=== PATIENT | female | born 1945 | race Caucasian/White ===

== ENCOUNTER 2019-07-14 05:51 | Day surgery (SDC) | payer MEDICARE, SELFPAY ==
[2019-07-13 10:53] VITALS: BMI 34.7
--- NOTE | 2019-07-14 05:30 | P.HP_ITS ---
Providers/Chief Complaint Primary Care Provider: Teri Roca MD Chief Complaint: L97.522 History of Present Illness Caro Arcos is a 73 year old female with a chronic wound to the plantar aspect of her left foot sub-first metatarsal head. Patient has an past medical history significant for type 2 diabetes mellitus insulin-dependent, hypertension, hyperlipidemia, peripheral arterial disease, neuropathy and cataract. She has been under the care of [facility] wound care for her left foot wound which has stalled out, requesting a surgical debridement with application of biologic substitute and effort to promote further healing. Patient denies any other pedal complaints at this time. Review of Systems General: Reports: 10 or more systems reviewed and unremarkable except in HPI and below Const: Denies: fever or chills Card: Denies: chest pain, palpitations or syncope Resp: Denies: shortness of breath or productive cough GI: Denies: abdominal pain Musc: Reports: limited range of motion Skin/Breast: Reports: sores, nail changes and change in hair Neuro: Reports: numbness in extremities, changes in sensation and difficulty walking Psych: Denies: suicidal ideation Travon/Lymph: Denies: easy bruising All/Imm: Denies: hives Medications/Allergies Home Medications Medication Instructions Recorded Confirmed Last Taken Type carvedilol 12.5 mg PO DAILY 07/13/19 07/13/19 07/13/19 History citalopram 20 mg PO DAILY 07/13/19 07/13/19 07/13/19 History hydrocodone-acetaminophen 7.5 tab PO DAILY 07/13/19 07/13/19 07/13/19 History levothyroxine 75 mcg PO DAILY 07/13/19 07/13/19 07/13/19 History potassium chloride 10 meq PO DAILY 07/13/19 07/13/19 07/13/19 History simvastatin 40 mg PO DAILY 07/13/19 07/13/19 07/13/19 History warfarin 3 mg PO DAILY 07/13/19 07/13/19 07/08/19 History Allergies Allergy/AdvReac Type Severity Reaction Status Date / Time No Known Allergies Allergy Verified 07/10/19 11:43 PFSH PFSH: Statuses (acute, chronic, etc) shown below reflect problem list status as previously entered and may not be historically accurate Social History Smoking and tobacco status: never smoked Alcohol intake: never Substance/Drug Use: never Vital Signs Weight: Weight last 48 hrs Weight 190 lb Weight 190 lb Physical Exam Narrative: EXAM NARRATIVE: Patient is in no acute distress, conversant. PSYCH: Patient is alert and oriented to person, place and time. HEENT: PERRL. Clear sclera. No rhinitis. Moist mucous membranes of oral cavity. CARDIOVASCULAR: S1, S2, normal rhythm, no murmur, rub, or gallop. Dorsalis pedis and posterior tibial arteries palpable. Capillary refill time less than 3 seconds to the distal hallux bilaterally. Calf is supple and nontender proximally and distally. Decreased pedal hair growth noted. LUNGS: Clear to auscltation, no use of acessory muscles, no crackles or wheezes. LYMPHATIC: No lymphadenopathy. NEUROLOGICAL: Protective sensation intact 3/10 sites, tested with [place] monofilament to bilateral feet. DERMATOLOGICAL: Full-thickness wound sub-first metatarsal head left foot measures 1.8 cm x 2.0 cm x 0.3 cm which undermines at the margin, hyperkeratotic rim, granular base with serous drainage no surrounding erythema, no purulent drainage, does not probe to bone, no exposure to tendon or capsule. Hyperkeratotic buildup sub-first metatarsal head right foot without wound. MUSCULOSKELETAL: Ankle joint dorsiflexion 2 degrees beyond neutral bilaterally. Very prominent metatarsal parabola bilaterally, atrophic fat pad appreciated at the bilateral forefoot. Contracted digits with sagittal plane dominance these are reducible 2 through 5 bilaterally. Muscle strength is 5 out of 5 in all 3 cardinal planes to bilateral foot and ankle. 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 since midnight, stopped taking her Coumadin on Wednesday. Planning on MAC anesthesia outpatient surgery for wound debridement and application of biological substitute to left foot. Risks include pain, bleeding, numbness, infection, poorly healing wound, need for further surgical intervention. Also risk associated with anesthesia. Patient has underwent serial debridement, offloading and advanced dressing changes along with antib iotics as needed at wound care with nonresponsive wound. Patient has been agreed to be very limited weightbearing to her left foot postoperatively much of her success will hinge on this, she is to wear a cam boot and heel touch only for transfers. Patient to follow-up in podiatry clinic postoperatively. Coding Level of Care Code Acute Auto Adjudication Specialist for Cristian Marroquin Diagnoses Diabetic peripheral neuropathy associated with type 2 diabetes mellitus E11.42 Chronic ulcer of great toe of left foot with fat layer exposed L97.522
[2019-07-14 06:22] VITALS: BP 117/48; PULSE 61; RESP 18; TEMP 37; O2SAT 99
[2019-07-14 06:36] LABS: Glucose Point of Care 154 mg/dL (70-110)
--- NOTE | 2019-07-14 06:40 | ANES.PREANES ---
Pre-Anesthetic Assessment Pre-Anesthetic Assessment: Height/Weight: Height 1.57 m Weight 86.183 kg Temp Pulse Resp BP Pulse Ox 98.6 F 61 18 117/48 99 07/14/19 06:22 07/14/19 06:22 07/14/19 06:22 07/14/19 06:22 07/14/19 06:22 Preop Diagnosis: Chronic nonpressure ulceration left plantar forefoot L97.522 Proposed Procedure: Operation Date: 07/14/19 07:00 Proposed Procedures p Debridement Wound bed preparation and application of biologic graft, left foot () L97.522(Not Applicable) - Roni Lynn DPM Last intake: Intake Last Liquid Date 07/13/19 Last Liquid Time 20:00 Last Solid Date 07/13/19 Last Solid Time 19:00 Social: Social History: No alcohol and No tobacco Exam: Pre-Anes Outpt Exam: alert, oriented x 3, clear to auscultation bilaterally and regular rate & rhythm Airway: Submandibular: WNL Cervical ROM: WNL MP: 2 Dentition: Full History/ROS: No significant history except as noted Pulmonary: Pulmonary: TROTTER CV/HEM: CV/HEM: Afib and HTN : : None reported Hepatic: Hepatic: None reported GI: GI: GERD (controlled) Metabolic: Metabolic: DM, Hyperlipidemia and Thyroid Musc/skel: Musc/skel: Lower Back Pain and OA/DJD Neuropsych: Neuropsych: Neuropathy (feet) Anesthetic Plan: ASA status: III Anesthesia: Anesthesia Evaluation and MAC Risk of > 500 ml blood loss (7ml/kg in children): No PFSH Anesthesia PFSH: Medical History Atrial fibrillation and flutter (Acute) Diabetes type I (Acute) Severe hearing loss (Acute) left side Vertigo (Acute) Surgical History Hx of foot surgery (Acute) left x 4 Hx of tubal ligation (Acute) Hx of vaginal surgery (Acute) removal of vagina Social History Smoking and tobacco status: never smoked Alcohol intake: never Data Anesthesia Other Labs: Laboratory Results - last 48 hr 07/14/19 06:32 POC Glucose 154 Cardiac Studies: No Data to Display
--- NOTE | 2019-07-14 07:27 | P.OP_ITS ---
Operative Report Date of procedure: 07/14/19 Pre-op Diagnosis: Chronic nonpressure ulceration left plantar forefoot L97.522 Post-op diagnosis: same Post-op Findings: None Procedure Done: 1. Wound bed preparation left foot 2. Application of biologic substitute left foot Implants: Integra Omnigraft 4x4 Specimens removed/disposition: None Pathology: none sent Surgeon: Roni Lynn D.P.M. Education Administrative Assistant: Arslan Anesthesia: MAC and Local (20 cc of 0.5% Marcaine plain and a left Mckeon block fashion) Estimated blood loss: 2 mL IV fluids: None Urine output: None Complications: None Condition: stable Disposition: PACU Brief History: Patient is a 73-year-old diabetic female with nonhealing wound left plantar forefoot has underwent serial debridement, offloading modalities and advanced wound care dressings without improvement. Would like to undergo surgical debridement with application of collagen and silicone bilayer graft risks include pain, bleeding, numbness, infection, need for further surgical debridement and amputation. Procedure: Under mild sedation the patient was brought to the operating room and placed on the operating table in supine position. Timeout was performed. Anesthesia was then administered by the anesthesia service. Local anesthesia was injected by myself consisting of 20 cc of 0.5% Marcaine plain and a left Mckeon block fashion. Left lower extremity was scrubbed, prepped and draped utilizing normal aseptic technique. Left foot was then elevated and a tourniquet was inflated at left ankle this was a well-padded pneumatic tourniquet to 250 mmHg. Attention was directed to the plantar aspect of the left forefoot sub-first metatarsal head a full-thickness wound exposed to fat layer was appreciated pre- debridement measurements were 2.2 cm x 2.0 cm x 0.2 cm. The wound was excised circumferentially down to healthy tissue with a #15 blade, nonviable tissue was passed from the operative field. #10 blade was then utilized to prepare the bed of the wound to remove all fibrin, slough, biofilm and devitalized tissue down to the layer of subcutaneous tissue. Healthy bleeding edges were appreciated post debridement. Site was irrigated with copious amounts of sterile saline solution. No remaining devitalized tissue appreciated wound not probed tendon, fascia or bone. Post debridement wound measurements 2.8 cm x 2.5 cm x 0.2 cm. A Integra bilayer graft was then applied this was consisting of chondroitin collagen and silicone it was sized and fitted directly to the wound bed and secured with skin willem. Dressing was then applied consisting of Adaptic, sterile 4 x 4's, Kerlix and Nas wrap. Tourniquet was deflated and a prompt hyperemic response was noted to the distal digits of the left foot. Patient tolerated the procedure and anesthesia well and was transferred to the PACU with vital signs stable and vascular status intact. Following a period of postoperative monitoring she will be discharged home is to be nonweightbearing to the left foot. She was placed back into her cam boot that she brought with her. She is to follow-up in clinic appointed time and was provided my cell phone numbers to contact me with any postoperative questions or concerns.
[2019-07-14 07:33] VITALS: BP 115/51; PULSE 61; RESP 16; TEMP 37; O2SAT 99
== END 2019-07-14 08:11 | disposition home or self-care (01) ==
PROVIDERS: Family Provider Internal Medicine; PCP Internal Medicine; Visit Provider Podiatrist Foot & Ankle Surgery
PROC: (CPT 15004; principal; 2019-07-14 07:00)
DX: L97.522 Non-pressure chronic ulcer of other part of left foot with fat layer exposed (principal); Z79.891 Long term (current) use of opiate analgesic; Z79.01 Long term (current) use of anticoagulants; E11.42 Type 2 diabetes mellitus with diabetic polyneuropathy; I48.91 Unspecified atrial fibrillation; K21.9 Gastro-esophageal reflux disease without esophagitis; E78.5 Hyperlipidemia, unspecified; M19.90 Unspecified osteoarthritis, unspecified site
CPT/HCPCS: 15004; 15275; 12345; 36416; 82962; C1713; J0690; J2001; J2704; J3010; J3490

== ENCOUNTER 2019-07-17 10:17 | Outpatient (RCR) | payer MEDICARE, SELFPAY | END 2019-07-21 23:59 | disposition home or self-care (01) | LOC: WOUND 10:17 | PROVIDERS: Family Provider Internal Medicine; PCP Internal Medicine; Visit Provider Nurse Practitioner Family | DX: E11.621 Type 2 diabetes mellitus with foot ulcer (principal); L97.522 Non-pressure chronic ulcer of other part of left foot with fat layer exposed | CPT/HCPCS: 11042; 99214; L3260; L4387 ==

== ENCOUNTER 2019-08-17 09:59 | Outpatient (RCR) | payer MEDICARE, SELFPAY | END 2019-08-19 23:59 | disposition home or self-care (01) | LOC: WOUND 09:59 | PROVIDERS: Family Provider Internal Medicine; PCP Internal Medicine; Visit Provider Nurse Practitioner Family | DX: E11.621 Type 2 diabetes mellitus with foot ulcer (principal); L97.422 Non-pressure chronic ulcer of left heel and midfoot with fat layer exposed | CPT/HCPCS: 99204; 99212 ==

== ENCOUNTER 2019-09-14 10:37 | Outpatient (RCR) | payer MEDICARE, SELFPAY | END 2019-09-19 23:59 | disposition home or self-care (01) | LOC: WOUND 10:37 | PROVIDERS: Family Provider Internal Medicine; PCP Internal Medicine; Visit Provider Nurse Practitioner Family | DX: E11.621 Type 2 diabetes mellitus with foot ulcer (principal); L97.422 Non-pressure chronic ulcer of left heel and midfoot with fat layer exposed | CPT/HCPCS: 11042; 99214; G0463; L3260 ==

== ENCOUNTER 2019-09-21 10:42 | Outpatient (RCR) | payer MEDICARE, SELFPAY | END 2019-10-19 23:59 | disposition home or self-care (01) | LOC: WOUND 10:42 | PROVIDERS: Family Provider Internal Medicine; PCP Internal Medicine; Visit Provider Nurse Practitioner Family | DX: Z09 Encounter for follow-up examination after completed treatment for conditions other than malignant neoplasm (principal) | CPT/HCPCS: 99213; G0463 ==

== ENCOUNTER 2020-01-04 08:36 | Outpatient (CLI) | payer MEDICARE, SELFPAY | END 2020-01-04 08:37 | disposition home or self-care (01) | LOC: WOUND 08:39 | PROVIDERS: Family Provider Internal Medicine; PCP Internal Medicine; Visit Provider Emergency Medicine | DX: E11.621 Type 2 diabetes mellitus with foot ulcer (principal); L97.522 Non-pressure chronic ulcer of other part of left foot with fat layer exposed | CPT/HCPCS: 11042; 87070; 87077; 87176; 87186; 87205; L3260 ==

== ENCOUNTER 2020-01-10 13:46 | Outpatient (CLI) | payer MEDICARE, SELFPAY ==
--- NOTE | 2020-01-10 14:03 | XRR_ITS ---
PROCEDURE INFORMATION: Exam: XR Left Foot Complete Exam date and time: 01/10/2020 2:17 PM Age: 74 years old Clinical indication: Pain; Foot; Left; Prior surgery; Surgery date: 6+ months; Additional info: Pain, redness, nonhealing ulcer TECHNIQUE: Imaging protocol: XR Left foot. Views: 3 or more views. COMPARISON: CR Foot 3 views, LEFT* [id number] 11/30/2018 10:37 AM FINDINGS: Bones/joints: There is amputation of the distal 1/2 of the 2nd and 3rd metatarsals. This finding was present on prior examination and appears similar. Soft tissues: Dorsal foot soft tissue edema is seen increased since prior examination. Other findings: The examination does not show acute abnormality. Comparison to prior examination similar findings is seen. XR/XR foot LT min 3V* [id number] IMPRESSION: 1. Amputation of the 2nd and 3rd metatarsal. 2. Negative for acute bony abnormality. 3. Soft tissue edema dorsal foot increased since prior
== END 2020-01-10 13:47 | disposition home or self-care (01) ==
LOC: RAD 13:56
PROVIDERS: PCP Internal Medicine; Visit Provider Emergency Medicine
DX: M79.672 Pain in left foot (principal); L97.529 Non-pressure chronic ulcer of other part of left foot with unspecified severity; Z89.422 Acquired absence of other left toe(s); R60.9 Edema, unspecified
CPT/HCPCS: 73630

== ENCOUNTER 2020-01-11 09:39 | Outpatient (CLI) | payer MEDICARE, SELFPAY | END 2020-01-11 09:40 | disposition home or self-care (01) | LOC: WOUND 09:40 | PROVIDERS: PCP Internal Medicine; Visit Provider Nurse Practitioner Family | DX: E11.621 Type 2 diabetes mellitus with foot ulcer (principal); L97.522 Non-pressure chronic ulcer of other part of left foot with fat layer exposed ==

== ENCOUNTER 2020-01-18 09:16 | Outpatient (CLI) | payer MEDICARE, SELFPAY | END 2020-01-18 09:17 | disposition home or self-care (01) | LOC: WOUND 09:18 | PROVIDERS: PCP Internal Medicine; Visit Provider Nurse Practitioner Family | DX: E11.621 Type 2 diabetes mellitus with foot ulcer (principal); L97.522 Non-pressure chronic ulcer of other part of left foot with fat layer exposed | CPT/HCPCS: 11042 ==

== ENCOUNTER 2020-01-25 09:09 | Outpatient (CLI) | payer MEDICARE, SELFPAY | END 2020-01-25 09:10 | disposition home or self-care (01) | LOC: WOUND 09:11 | PROVIDERS: PCP Internal Medicine; Visit Provider Thoracic Surgery (Cardiothoracic Vascular Surgery) | DX: E11.621 Type 2 diabetes mellitus with foot ulcer (principal); L97.522 Non-pressure chronic ulcer of other part of left foot with fat layer exposed | CPT/HCPCS: 99212 ==

== ENCOUNTER 2020-02-01 10:04 | Outpatient (CLI) | payer MEDICARE, SELFPAY | END 2020-02-01 10:05 | disposition home or self-care (01) | LOC: WOUND 10:05 | PROVIDERS: PCP Internal Medicine; Visit Provider Nurse Practitioner Family | DX: E11.621 Type 2 diabetes mellitus with foot ulcer (principal); L97.522 Non-pressure chronic ulcer of other part of left foot with fat layer exposed | CPT/HCPCS: 11042; L3260 ==

== ENCOUNTER 2020-02-08 08:52 | Outpatient (CLI) | payer MEDICARE, SELFPAY | END 2020-02-08 08:53 | disposition home or self-care (01) | LOC: WOUND 08:52 | PROVIDERS: PCP Internal Medicine; Visit Provider Emergency Medicine | DX: E11.621 Type 2 diabetes mellitus with foot ulcer (principal); L97.522 Non-pressure chronic ulcer of other part of left foot with fat layer exposed | CPT/HCPCS: 11042 ==

== ENCOUNTER 2020-02-22 09:20 | Outpatient (CLI) | payer MEDICARE, SELFPAY | END 2020-02-22 09:21 | disposition home or self-care (01) | LOC: WOUND 09:21 | PROVIDERS: PCP Internal Medicine; Visit Provider Emergency Medicine | DX: E11.621 Type 2 diabetes mellitus with foot ulcer (principal); L97.522 Non-pressure chronic ulcer of other part of left foot with fat layer exposed | CPT/HCPCS: 11042 ==

== ENCOUNTER 2020-03-07 09:40 | Outpatient (CLI) | payer MEDICARE, SELFPAY | END 2020-03-07 09:41 | disposition home or self-care (01) | LOC: WOUND 09:49 | PROVIDERS: PCP Internal Medicine; Visit Provider Emergency Medicine | DX: E11.621 Type 2 diabetes mellitus with foot ulcer (principal); L97.522 Non-pressure chronic ulcer of other part of left foot with fat layer exposed | CPT/HCPCS: 11042; L3260 ==

== ENCOUNTER 2020-03-14 09:43 | Outpatient (CLI) | payer MEDICARE, SELFPAY | END 2020-03-14 09:44 | disposition home or self-care (01) | LOC: WOUND 09:45 | PROVIDERS: PCP Internal Medicine; Visit Provider Nurse Practitioner Family | DX: E11.621 Type 2 diabetes mellitus with foot ulcer (principal); L97.522 Non-pressure chronic ulcer of other part of left foot with fat layer exposed | CPT/HCPCS: 11042; A6446 ==

== ENCOUNTER 2020-03-21 10:56 | Outpatient (CLI) | payer MEDICARE, SELFPAY | END 2020-03-21 10:57 | disposition home or self-care (01) | LOC: WOUND 10:57 | PROVIDERS: PCP Internal Medicine; Visit Provider Nurse Practitioner Family | DX: E11.621 Type 2 diabetes mellitus with foot ulcer (principal); L97.522 Non-pressure chronic ulcer of other part of left foot with fat layer exposed | CPT/HCPCS: 11042 ==

== ENCOUNTER 2020-03-28 09:56 | Outpatient (CLI) | payer MEDICARE, SELFPAY | END 2020-03-28 09:57 | disposition home or self-care (01) | LOC: WOUND 09:57 | PROVIDERS: PCP Internal Medicine; Visit Provider Surgery | DX: E11.621 Type 2 diabetes mellitus with foot ulcer (principal); L97.522 Non-pressure chronic ulcer of other part of left foot with fat layer exposed | CPT/HCPCS: G0463 ==

== ENCOUNTER 2020-04-04 10:15 | Emergency (ER) | payer MEDICARE, SELFPAY ==
--- NOTE | 2020-04-04 10:17 | XR_ITS ---
WS: [id number] Left ankle, 3 views, 04/04/2020 Clinical Data: fall Comparison: None. Findings: No fractures or dislocations are seen. The ankle mortise is normal. The talus and calcaneus are unrem arkable. There is soft tissue swelling over the medial and lateral malleolus.There is a plantar spur. XR/XR ankle LT min 3V* [id number] Impression: 1. Negative for left ankle fracture. 2. Soft tissue swelling over medial and lateral malleoli
[2020-04-04 10:21] VITALS: BP 121/75; PULSE 55; RESP 16; TEMP 36.8; O2SAT 98; BMI 33.8
--- NOTE | 2020-04-04 10:35 | ED_ITS ---
HPI - Extremity Problem General: Chief complaint: Extremity Injury, Lower Stated complaint: Fall/Left Ankle Pain Time Seen by Provider: 04/04/20 10:28 History of Present Illness: HPI Narrative: Patient twisted left ankle get off stool day before yesterday at the store it hurt since then has been swelled since then. Patient also has a wound on that left foot that she has been seen at wound care for 2 years for and she just changed dressing last night and says wound looks fine has pain with ambulation in that joint MD Complaint: joint swelling and joint pain Onset (ago): day(s) Location: lower extremity Severity scale (1-10): 4 Quality: aching Relieving factors: immobilization Exacerbating factors: range of motion and weight bearing Associated symptoms: Reports no associated symptoms; Deny chest pain, fever(s) or rash Review of Systems Const: Denies: fever(s), chills or body aches Eyes: Denies: change in vision or blurry vision ENMT: Denies: throat pain or nasal congestion Card: Denies: chest pain or dyspnea on exertion Resp: Denies: dyspnea, productive cough or non-productive cough GI: Denies: abdominal pain, nausea or vomiting Musc: Reports: joint pain (Left ankle) and joint swelling; Denies: extremity pain Skin/Breast: Denies: rash Neuro: Denies: headache(s) Psych: Denies: anxiety or depression Travon/Lymph: Denies: easy bruising [facility] ED PFSH: Medical History (Updated 11/24/19 @ 13:36 by Roin Lynn DPM) Atrial fibrillation and flutter Diabetes type I Severe hearing loss left side Vertigo Surgical History Hx of foot surgery left x 4 Hx of tubal ligation Hx of vaginal surgery removal of vagina Family History Denies family history of Diabetes CAD (coronary artery disease) Clotting disorder Dementia Hyperlipidemia Psychiatric illness Chronic kidney disease (CKD) Suicide Anesthesia complication Bleeding disorder Family history of premature coronary artery disease Lung disease Cancer Hypertension Stroke Social History Smoking and tobacco status: never smoked Alcohol intake: never Physical Exam Const: COMMON NORMALS: no acute distress Extremity: LEFT LOWER EXTREMITY: Yes ankle joint (Left ankle pain swelling pain with range of motion ankle is wrapped dressing is dry distal neurovascular intact) Left ankle: Yes ROM and Yes neurovascular exam Course Vital Signs: Vital signs: Vital Signs Temperature 98.2 F 04/04/20 10:21 Pulse Rate 55 L 04/04/20 10:21 Respiratory Rate 16 04/04/20 10:21 Blood Pressure 121/75 04/04/20 10:21 Pulse Oximetry 98 04/04/20 10:21 Discharge Plan Discharge Prescriptions: No Action carvedilol 12.5 mg tablet 12.5 mg PO DAILY RF: 0 simvastatin 40 mg tablet 40 mg PO DAILY RF: 0 warfarin 3 mg tablet 3 mg PO DAILY RF: 0 levothyroxine 75 mcg tablet 75 mcg PO DAILY RF: 0 citalopram 20 mg tablet 20 mg PO DAILY RF: 0 hydrocodone-acetaminophen 7.5-325 mg tablet 7.5 tab PO DAILY RF: 0 potassium chloride 10 mEq tablet,ER particles/crystals 10 meq PO DAILY RF: 0 Coding Level of Care Code ED Activities Aide for Cristian Marroquin
[2020-04-04 10:43] VITALS: BP 119/63; RESP 16; O2SAT 99
== END 2020-04-04 10:51 | disposition home or self-care (01) ==
PROVIDERS: Emergency Provider Nurse Practitioner Family; PCP Internal Medicine
DX: M25.572 Pain in left ankle and joints of left foot (principal); Z79.01 Long term (current) use of anticoagulants; E10.9 Type 1 diabetes mellitus without complications; I48.91 Unspecified atrial fibrillation
CPT/HCPCS: 12345; 73610; 99281; 99282

== ENCOUNTER 2020-04-11 09:50 | Outpatient (CLI) | payer MEDICARE, SELFPAY | END 2020-04-11 09:51 | disposition home or self-care (01) | LOC: WOUND 09:51 | PROVIDERS: PCP Internal Medicine; Visit Provider Nurse Practitioner Family | DX: E11.621 Type 2 diabetes mellitus with foot ulcer (principal); L97.523 Non-pressure chronic ulcer of other part of left foot with necrosis of muscle | CPT/HCPCS: G0463; L3260 ==

== ENCOUNTER 2020-04-12 07:35 | Outpatient (CLI) | payer MEDICARE, SELFPAY ==
--- NOTE | 2020-04-12 07:47 | NM_ITS ---
WS: [id number] NUCLEAR MEDICINE BONE SCAN 3 phase Radiopharmaceutical: 24.1 Tc-99m MDP mCi IV Injection site: Right antecubital Postinjection imaging delay: 2 hr CLINICAL INFORMATION: PAIN/REDNESS/NONHEALING ULCER COMPARISON: Radiograph 04/11/20 and 01/10/2020 FINDINGS: Recent foot radiographs reviewed. Osteopenia. Soft tissue edema. Prior amputation second an d third metatarsals. This appears unchanged from previous. Osseous destruction involving the first MT P joint with subluxation. Destructive changes at the first metatarsal head involving the medial and l ateral cortex worse involving the lateral cortex. This is progressed since January 10, 2020 Increased blood flow blood pool and delayed skeletal uptake involving the first metatarsal. This yoana esponds to the findings on the concurrent radiograph. Findings are compatible with osteomyelitis in t his location. Soft tissue contours: Normal. Kidneys: Normal. Other findings: None. NM/NM bone 3 phase [id number] IMPRESSION: 1. Three-phase matching uptake involving the first metatarsal head compatible with osteomyelitis. This extends to the mid shaft of the first metatarsal. This extends distally to the first MTP 2. Osseous destructive changes involving the head of the first metatarsal on tono rodriguez's radiograph is new since 01/10/20 compatible with osteomyelitis.
--- NOTE | 2020-04-12 10:54 | XR_ITS ---
WS: [id number] FOOT LEFT TECHNIQUE: 3 views of the left foot CLINICAL INFORMATION: BONE SCAN COMPARISON COMPARISON: April 04, 2020 and January 10, 2020 FINDINGS: Diffuse osteopenia. Prior postoperative changes amputation of the second third metatarsals unchanged in appearance. New osteolysis with destructive changes involving the head of the first metatarsal. Ir regularity involving the medial and lateral cortices consistent with osteomyelitis. Chronic subluxati on/dislocation at the first MTP similar in appearance to the prior examination. Soft tissue edema. Pl ceci calcaneal spurring. XR/XR foot LT min 3V* [id number] IMPRESSION: New findings of osteomyelitis involving the first metatarsal head described abo melissa.
== END 2020-04-12 07:36 | disposition home or self-care (01) ==
PROVIDERS: PCP Internal Medicine; Visit Provider Nurse Practitioner Family
DX: M79.672 Pain in left foot (principal); L53.9 Erythematous condition, unspecified; L97.529 Non-pressure chronic ulcer of other part of left foot with unspecified severity; M86.8X7 Other osteomyelitis, ankle and foot
CPT/HCPCS: 73630; 78315; A9561

== ENCOUNTER 2020-04-25 10:44 | Outpatient (CLI) | payer MEDICARE, SELFPAY | END 2020-04-25 10:45 | disposition home or self-care (01) | LOC: WOUND 10:45 | PROVIDERS: PCP Internal Medicine; Visit Provider Nurse Practitioner Family | DX: E11.621 Type 2 diabetes mellitus with foot ulcer (principal); L97.522 Non-pressure chronic ulcer of other part of left foot with fat layer exposed | CPT/HCPCS: 11042; G0463 ==

== ENCOUNTER 2020-05-02 10:01 | Outpatient (CLI) | payer MEDICARE, SELFPAY | END 2020-05-02 10:02 | disposition home or self-care (01) | LOC: WOUND 10:04 | PROVIDERS: PCP Internal Medicine; Visit Provider Nurse Practitioner Family | DX: E11.621 Type 2 diabetes mellitus with foot ulcer (principal); L97.524 Non-pressure chronic ulcer of other part of left foot with necrosis of bone | CPT/HCPCS: 11042; L4387 ==

== ENCOUNTER → 2020-05-06 13:03 | Outpatient (BNVA) | payer MEDICARE, SELFPAY | PROVIDERS: PCP Internal Medicine; Visit Provider Podiatrist Foot & Ankle Surgery | DX: Z11.59 Encounter for screening for other viral diseases (principal); M47.816 Spondylosis without myelopathy or radiculopathy, lumbar region | CPT/HCPCS: 87635 ==

== ENCOUNTER 2020-05-10 09:01 | Day surgery (SDC) | payer MEDICARE, SELFPAY ==
[2020-05-09 13:12] VITALS: BMI 32.0
[2020-05-10 09:15] VITALS: BP 125/65; PULSE 66; RESP 18; TEMP 36.6; O2SAT 96
[2020-05-10] MEDS: sodium chloride 0.9% 1,000 ML 30 ML IV (10:02)
--- NOTE | 2020-05-10 10:16 | ANES.PREANE2 ---
Pre-Anesthetic Assessment Pre-Anesthetic Assessment: Height/Weight: Height 1.57 m Weight 79.379 kg Temp Pulse Resp BP Pulse Ox 97.9 F 66 18 125/65 96 05/10/20 09:15 05/10/20 09:15 05/10/20 09:15 05/10/20 09:15 05/10/20 09:15 Preop Diagnosis: Left ankle equinus, left foot osteomyelitis Proposed Procedure: Operation Date: 05/10/20 10:20 Proposed Procedures p Transmetatarsal Amputation Left foot 08121 23549 M86.9 M24.572(Left) - Roni Lynn DPM s Achilles Tendon Lengthening left lower extremity(Left) - Roni Lynn DPM Familial anesthetic complications: None Was Beta Blake taken within 24 hours: Yes Last intake: Intake Last Liquid Date 05/10/20 Last Liquid Time 07:00 Last Solid Date 05/09/20 Last Solid Time 20:00 Social: Social History: No alcohol and No tobacco Exam: Pre-Anes Outpt Exam: alert, oriented x 3, clear to auscultation bilaterally and regular rate & rhythm Airway: Cervical ROM: WNL MP: 3 Dentition: False CV/HEM: CV/HEM: Afib (off warfarin since wednesday) and HTN Comments: 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 If seizure will attempt propofol, before versed and avoid phenytoin. Risk of > 500 ml blood loss (7ml/kg in children): No Meds/Allergies Current Medications: Current Medications Generic Name Dose Route Start Last Admin Trade Name Freq PRN Reason Stop Dose Admin Sodium Chloride 1,000 mls @ 30 ml s/hr 05/10/20 09:15 05/10/20 10:02 Sodium Chloride 0.9% IV 05/11/20 09:14 30 mls/hr .Q24H JENNY Administration PFSH Anesthesia PFSH: Medical History (Updated 05/06/20 @ 08:47 by Roni Lynn DPM) Atrial fibrillation and flutter Diabetes type I Severe hearing loss left side Vertigo Surgical History Hx of foot surgery left x 4 Hx of tubal ligation Hx of vaginal surgery removal of vagina Family History Denies family history of Diabetes CAD (coronary artery disease) Clotting disorder Dementia Hyperlipidemia Psychiatric illness Chronic kidney disease (CKD) Suicide Anesthesia complication Bleeding disorder Family history of premature coronary artery disease Lung disease Cancer Hypertension Stroke Social History Smoking and tobacco status: never smoked Alcohol intake: never Data Anesthesia Cardiac Studies: No Data to Display
--- NOTE | 2020-05-10 10:29 | P.HPUD_ITS ---
Surgery/Procedure H&P Update DATE OF PROCEDURE: May 10, 2020 DATE H&P PERFORMED: 05/02/20 H&P UPDATE INFORMATION: I have reviewed H&P completed within last 30 days, I have examined patient prior to procedure, No changes to prior documentation and H&P is in [facility] EMR on date indicated PREOP DIAGNOSIS: Left ankle equinus, left foot osteomyelitis PLANNED PROCEDURE: Operation Date: 05/10/20 10:20 Proposed Procedures p Transmetatarsal Amputation Left foot 35130 17335 M86.9 M24.572(Left) - Roni Lynn DPM s Achilles Tendon Lengthening left lower extremity(Left) - Roni Lynn DPM
[2020-05-10] MEDS: lidocaine 1% INJ 20 mL INJECTION (10:54)
[2020-05-10 11:44] LABS: Glucose Point of Care 176 mg/dL (70-110)
--- NOTE | 2020-05-10 11:53 | XR_ITS ---
WS: [id number] Exam: XR foot LT 2V [id number] Date/Time of Exam: 05/10/2020 11:53 AM Reason For Exam: post op Comparison 04/12/2020. There has been amputation of the forefoot at the level of the proximal metatarsals. No fracture or os seous destruction involving the remaining aspects of the foot. The amputation stump is unremarkable i n appearance. Small heel spurs. XR/XR foot LT 2V [id number] IMPRESSION: 1. Status post forefoot amputation at the level of the proximal metatarsals. Th e remaining osseous structures of the foot are unremarkable in appearance.
[2020-05-10 11:56] VITALS: BP 103/58; PULSE 64; RESP 16; TEMP 36.4; O2SAT 94
[2020-05-10 12:52] VITALS: BP 117/64; PULSE 60; RESP 18; TEMP 36.5; O2SAT 94
--- NOTE | 2020-05-10 18:36 | ANE.PACU2 ---
Inpatient post-anesthesia follow up: Airway intact: Yes Vital signs: Temperature 97.7 F Pulse Rate 60 Respiratory Rate 18 Blood Pressure 117/64 Pulse Oximetry 94 Oxygen Delivery Me thod Room Air Oxygen Flow Rate Fraction of Inspir ed Oxygen Hydration adequate: Yes Nausea and vomiting: No Pain level: 1 Mental status: Baseline
--- NOTE | 2020-05-10 18:47 | PM.OP ---
Operative Report Date of procedure: May 10, 2020 Pre-op Diagnosis: Left ankle equinus, left foot osteomyelitis Post-op diagnosis: same Procedure Done: Transmetatarsal Amputation Left foot, Achilles Tendon Lengthening left lower extremity. CPT codes 50798 and 10873 Implants: 3-0 nylon Specimens removed/disposition: Left first metatarsal head sent to microbiology for Gram stain and culture Pathology: Left forefoot sent to pathology for permanent Surgeon: Roni Lynn D.P.M. Pass Worker: Katie Anesthesia: MAC Estimated blood loss: 25 mL Tourniquet time: See intraoperative documentation IV fluids: None Urine output: None Complications: None Findings: Devitalized soft tissue and bone first metatarsal left foot. Condition: stable Disposition: PACU Brief History: Patient is a pleasant 74-year-old diabetic female with history of chronic osteomyelitis and wound care therapies at [facility] [place] wound care greater than 1 year, osteomyelitis of the first metatarsal with worsening clinical appearance including increased redness and drainage. Patient has history of partial ray resection of the second and third ray of the left foot. Recommending transmetatarsal amputation with primary closure and tendo Achilles lengthening of the left lower extremity this can be performed outpatient at this time. Patient is agreeable wishes to proceed risks include pain, bleeding, numbness, infection, failure to eradicate infection need for higher levels of amputation and potential need for antibiotic therapies, surgical site dehiscence, decreased function, need for advanced bracing and shoe modifications. Patient is agreeable wishes to proceed. Patient seen in preop holding, informed consent signed identified left lower extremity marked extremity with skin marker. All questions answered to patient's and her son satisfaction. No guarantees written, expressed or implied. Procedure: Under mild sedation the patient was brought to the operating room and placed on the operating table in supine position. A timeout was performed. Anesthesia was then administered by the anesthesia service. Local anesthesia injected by myself consisting of 30 cc of 0.5 to Marcaine plain and a left ankle block fashion as well as left posterior field block proximal to Achilles tendon. Well-padded pneumatic tourniquet applied to the left high calf. Left lower extremity was then scrubbed, prepped and draped utilizing normal aseptic technique. Left foot was elevated and the tourniquet inflated to 250 mmHg. Attention was directed to the left posterior leg where Achilles tendon was palpated 3 cm proximal to insertion of the posterior calcaneus a hemisection was performed percutaneously with a #15 blade of the medial Achilles, 3 cm proximal to this a lateral hemisection was performed followed by a third stab incision and medial hemisection of the Achilles tendon. Total of 3 hemisections to medial 1 lateral performed percutaneously and the left ankle joint demonstrated improved dorsiflexion this was at nearly 10 degrees of dorsiflexion post Achilles lengthening. Incisions were flushed and closed with 4-0 nylon and covered with a OpSite. Attention was directed to the left foot where a fishmouth incision was carried out from medial to lateral across the distal forefoot maintaining as much healthy and viable skin as possible. Full-thickness incision was carried out with a #10 blade down to bone and dissection carried down to metatarsals 1 through 5 which identified and freed of their periosteal tissue. Sagittal saw utilized to perform transmetatarsal potation metatarsals 1 through 5 maintaining metatarsal parabola as best as possible beveling the edges and all rough edges being smooth with a rasp. Forefoot was passed from the operative field. Incision site was flushed with copious amounts of sterile saline solution. Bleeders were ligated and cauterized as necessary. Extensor and flexor tendons held under traction and transected at their proximal margin allowed to retract further proximally. Incision was then closed utilizing 3-0 nylon. Incision site was dressed with Adaptic, sterile 4 x 4's, Kerlix, ABD pad, cast padding and multilayer compressive posterior splint utilizing cast padding and Nas wrap with ankle at 90 degrees. Tourniquet was deflated and a hyperemic response was noted to the distal TMA site of the left foot. Patient tolerated procedure well and was transferred to the PACU with vital signs stable and vascular status intact. Of note the first metatarsal head was sent to microbiology for Gram stain and culture, left forefoot sent to pathology for permanent. Patient was given postoperative care instructions and follow-up.
== END 2020-05-10 13:15 | disposition home or self-care (01) ==
PROVIDERS: PCP Internal Medicine; Visit Provider Podiatrist Foot & Ankle Surgery
PROC: (CPT 27685; principal; 2020-05-10 10:20)
PROC: (CPT 28261; 2020-05-10 10:20)
DX: M86.8X7 Other osteomyelitis, ankle and foot (principal); I48.91 Unspecified atrial fibrillation; E78.5 Hyperlipidemia, unspecified; E11.42 Type 2 diabetes mellitus with diabetic polyneuropathy
CPT/HCPCS: 27685; 28805; 12345; 36416; 73620; 82962; 87070; 87077; 87176; 87186; 87205; 88305; J0690; J2370; J2704; J3490; J7030

== ENCOUNTER 2020-05-15 10:22 | Outpatient (CLI) | payer MEDICARE, SELFPAY | END 2020-05-15 10:23 | disposition home or self-care (01) | LOC: SPT 10:22 | PROVIDERS: PCP Internal Medicine; Visit Provider Podiatrist Foot & Ankle Surgery | DX: Z46.89 Encounter for fitting and adjustment of other specified devices (principal); L97.522 Non-pressure chronic ulcer of other part of left foot with fat layer exposed | CPT/HCPCS: 97760; L4361 ==

== ENCOUNTER 2020-06-11 14:22 | Outpatient (CLI) | payer MEDICARE, SELFPAY | END 2020-06-11 14:23 | disposition home or self-care (01) | LOC: SPT 14:24 | PROVIDERS: PCP Internal Medicine; Visit Provider Podiatrist Foot & Ankle Surgery | DX: Z46.89 Encounter for fitting and adjustment of other specified devices (principal); L97.522 Non-pressure chronic ulcer of other part of left foot with fat layer exposed | CPT/HCPCS: 97760; L4361 ==

== ENCOUNTER 2020-06-25 12:11 | Outpatient (CLI) | payer MEDICARE, SELFPAY ==
--- NOTE | 2020-06-25 12:36 | XR_ITS ---
WS: [id number] FOOT LEFT TECHNIQUE: 3 views of the left foot CLINICAL INFORMATION: foot pain COMPARISON: May 10, 2020 FINDINGS: Osteopenia. Soft tissue edema. Prior postoperative changes amputation at the base of the metatarsals. Small plantar calcaneal spur. No evidence of acute osteomyelitis. XR/XR foot LT min 3V* [id number] IMPRESSION: 1. Postoperative changes amputation at the level the proximal metatarsals. Thi s is unchanged in appearance. 2. Osteopenia. No convincing evidence of acute osteolysis. 3. Soft tissue edema.
== END 2020-06-25 12:12 | disposition home or self-care (01) ==
LOC: RADWPI 12:15
PROVIDERS: PCP Internal Medicine; Visit Provider Podiatrist Foot & Ankle Surgery
DX: M79.672 Pain in left foot (principal); R60.0 Localized edema; M85.88 Other specified disorders of bone density and structure, other site
CPT/HCPCS: 73630

== ENCOUNTER 2020-07-30 07:25 | Outpatient (CLI) | payer MEDICARE, SELFPAY ==
[2020-07-30 07:41] VITALS: BMI 32.9
--- NOTE | 2020-07-30 07:42 | ECG_ITS ---
[facility] Test Date: 2020-07-30 Pat Name: Caro Arcos Department: Room: Gender: Female Senior Automation Engineer: Halina Gonzalez : 1945 Requested By: Teri Gracia Order Number: [id number] Reading MD: Rachel Pike M.D. Interpretive Statements NAME OF STUDY: LEXISCAN SESTAMIBI STRESS TEST INDICATION: Chest Pain PROCEDURE: At the baseline, the EKG revealed sinus bradycardia rate of [address]-T changes in the inferolateral leads. The baseline blood pressure was 140/70 mm Hg with a heart rate of 57 beats/min. Lexiscan was infused over a period of 20 seconds. A total of 0.4 milligrams of Lexiscan was infused. The stress phase was continued for a total of 5 minutes. Heart rate at the end of the stress phase was 73 with a blood pressure 136/60. The EKG at the peak infusion revealed no significant changes. Sestamibi was injected 20 seconds after the Lexiscan infusion. Blood pressure at the end of the recovery phase was 132/62 with a heart rate of 71 per minute. CONCLUSION: 1. No significant EKG changes with the LexiScan infusion 2. No LexiScan induced chest pain or cardiac arrhythmia 3. Normal blood pressure and heart rate response 4. Sestamibi/sestamibi perfusion scan pending; see separate report. Electronically Signed On 08-01-2020 10:05:32 MOTORCYCLE BUILDER by Rachel Pike M.D. [id number]
--- NOTE | 2020-07-30 07:43 | NMCV_ITS ---
NM stacia perf SPECT r/s* [id number] Josselyn Caro Age: 74 Gender: F : 1945 Exam Date: 07/30/2020 07:43 Ordering Phys: Teri Roca MD Technologist: AMARA Barron Exam Location: [facility] Indications: ABNORMAL EKG STRESS TEST Please see separate stress test report in [facility] for full findings IMAGE PROTOCOL Rest/Stress 1 Lexiscan Day Radiopharmaceutical Dose (mCi) Administration Site Administered by Rest: Tc-99m 10.9 IV AMARA Amaro Sestamibi Stress:Tc-99m 32.7 IV AMARA Barron Sestamierin Rest: 30-Jul-2020 60 Discovery 630 Stress: 30-Jul-2020 30 Discovery 630 0.4mg Lexiscan. Supine position only as patient was unable to lay prone. SPECT RESULTS Technical Quality: Excellent Raw Data Analysis: Normal Image Corrections: No attenuation or motion correction applied Summed Stress Score: 15 Summed Rest Score: 9 Summed Difference Score: 7 PERFUSION FINDINGS Monitor daily Parsii decreases uptake in the basal mid and apical inferior wall region, with significant reversibility small to moderate area of decreased aseptic was noted in mid and apical anterior, apical septal and LV apex. Some reversibility was noted in the mid anterior region FUNCTIONAL RESULTS (calculated via Gated SPECT) Stress Image LV EF (%): 39 Stress EDV (mL):168 TID: 1.05 Stress ESV (mL):103 FUNCTIONAL FINDINGS: Segmental wall motion analysis revealed diffuse hypokinesia of the LV apex, mid and apical anterior and mid and apical inferior wall regions. IMPRESSIONS 1. Myocardial perfusion imaging revealing a moderate area of severely decreased tracer uptake in the inferior wall region, with significant reversibility, suggestive of ischemia in the distribution of the right coronary artery. Small to moderate area of persistent decreased tracer uptake in the anterior, anteroseptal, apical septal and apical regions with subtle area of reversibility, suggestive of myocardial scarring in the distribution of the left anterior descending artery with a small area of montse-infarction ischemia. 2. Diminished LV ejection fraction 39%. 3. Multiple wall motion normalities as mentioned above. 4. Moderately dilated LV cavity with an end-systolic volume of 103 mL No similar previous studies are available for comparison Dr Rachel Pike MD FACC (Electronically Signed) Final Date: 30 July 2020 17:21 S
[2020-07-30 09:46] VITALS: BP 116/61; PULSE 78
[2020-07-30] MEDS: regadenoson 0.4 Mg/5 ml Syringe IVP (09:46)
== END 2020-07-30 07:26 | disposition home or self-care (01) ==
LOC: CDL 07:28
PROVIDERS: PCP Internal Medicine; Visit Provider Internal Medicine
DX: R94.31 Abnormal electrocardiogram [ECG] [EKG] (principal); R07.9 Chest pain, unspecified
CPT/HCPCS: 78452; 93017; A9500; J2785

== ENCOUNTER 2020-09-09 15:22 | Outpatient (CLI) | payer MEDICARE, SELFPAY ==
--- NOTE | 2020-09-09 15:45 | USCV_ITS ---
Caro Arcos Age: 74 Gender: F : 1945 Exam Date: 09/09/2020 15:38 Ordering Phys: Jazmine Mccann MD ([email or web address]) Technologist: Osmel Terrazas Exam Location: [facility] [place] Indication: MURMUR BP: 120 / 70 HR: 67 Rhythm: Sinus Technical Quality: Adequate MEASUREMENTS (Male / Female) Normal Values 2D ECHO LV Diastolic Diameter PLAX 5.1 cm 4.2 - 5.9 / 3.9 - 5.3 cm LV Systolic Diameter PLAX 3.1 cm IVS Diastolic Thickness 1.0 cm 0.6 - 1.0 / 0.6 - 0.9 cm IVS Systolic Thickness 1.5 cm LVPW Diastolic Thickness 1.0 cm 0.6 - 1.0 / 0.6 - 0.9 cm LVPW Systolic Thickness 1.4 cm LVOT Diameter 2.0 cm LV Ejection Fraction 2D Teich 68.8 % LV Ejection Fraction MOD 2C 59.4 % LV Ejection Fraction 2C AL 60.1 % LA Diameter 4.1 cm LA Width 4.6 cm LA Height 5.1 cm RA Width 3.6 cm RA Height 4.6 cm Aorta at Sinotubular Diameter 2.2 cm M-MODE LV Diastolic Diameter MM 5.3 cm 4.2 - 5.9 / 3.9 - 5.3 cm LV Systolic Diameter MM 3.6 cm LV Ejection Fraction MM Teich 58.1 % IVS Diastolic Thickness MM 1.0 cm 0.6 - 1.0 / 0.6 - 0.9 cm IVS Systolic Thickness MM 1.7 cm LVPW Diastolic Thickness MM 1.1 cm 0.6 - 1.0 / 0.6 - 0.9 cm LVPW Systolic Thickness MM 1.8 cm RV Diastolic Diameter MM 1.7 cm Aortic Annulus Diameter 2.7 cm LA Ao Ratio MM 1.6 MV E Point Septal Separation 1.2 cm DOPPLER AV Peak Velocity 298.0 cm/s LVOT Peak Velocity 80.0 cm/s AV Area Cont Eq vti 0.9 cm squared AV Area Cont Eq pk 0.9 cm squared MV Area PHT 5.0 cm squared Mitral E to A Ratio 1.1 MV E' Velocity 62.0 cm/s Mitral E to MV E' Ratio 16.4 Mitral E to LV E' Lateral Ratio 13.5 Mitral E to LV E' Septal Ratio 21.3 TR Peak Velocity 319.7 cm/s TR Peak Gradient 40.9 mmHg TV Peak E Velocity 92.0 cm/s Right Atrial Pressure 3.0 mmHg Pulmonary Artery Systolic Pressu 43.9 mmHg PV Peak Velocity 93.0 cm/s FINDINGS Left Ventricle Normal left ventricular cavity size and systolic function. Left ventricular ejection fraction is estimated at 55 %. Although no diagnostic regional wall abnormality could be identified, this possibility cannot be completely excluded. Grade II diastolic dysfunction, moderately elevated filling pressures. Right Ventricle Right ventricle not well visualized. Probably normal right ventricular systolic function. Right ventricular systolic pressure 43.9 mmHg. Right Atrium Normal right atrial size. Left Atrium Mildly increased left atrial size. Mitral Valve Mild mitral annular calcification. Thickened mitral valve. No mitral valve stenosis. Trace mitral valve regurgitation. Aortic Valve Aortic valve not well visualized. Moderate aortic valve stenosis, peak velocity 3 m/sec, peak gradient 36 mm Hg, mean gradient 17.2 mmHg, JACOBY 0.93 cm squared. Dimensionless valve index is 0.29. Mild aortic valve regurgitation. Tricuspid Valve Tricuspid valve not well visualized. Pulmonic Valve Pulmonic valve not well visualized. No pulmonary valve stenosis. Pericardium No pericardial effusion. Aorta Normal sized aortic root. CONCLUSIONS 1. This is a technically difficult study. 2. Normal left ventricular cavity size and systolic function. Left ventricular ejection fraction is estimated at 55 %. Although no diagnostic regional wall abnormality could be identified, this possibility cannot be completely excluded. Grade II diastolic dysfunction, moderately elevated filling pressures. 3. Moderate aortic valve stenosis, peak velocity 3 m/sec, peak gradient 36 mm Hg, mean gradient 17.2 mmHg, JACOBY 0.93 cm squared. Dimensionless valve index is 0.29. Mild aortic valve regurgitation. 4. Pulmonary artery pressure estimated at 44 mm Hg. 5. Direct comparisoon to previous study in 12/28/2014 is not possible given technical differences in study. Olya Hyatt MD (Electronically Signed) Final Date: 14 September 2020 14:00 S
== END 2020-09-09 15:23 | disposition home or self-care (01) ==
PROVIDERS: PCP Internal Medicine; Visit Provider Internal Medicine Cardiovascular Disease
DX: R01.1 Cardiac murmur, unspecified (principal); I35.0 Nonrheumatic aortic (valve) stenosis
CPT/HCPCS: 93306

== ENCOUNTER → 2020-09-16 08:00 | Day surgery (SDC) | payer MEDICARE, SELFPAY ==
[2020-09-16 13:45] LABS: Basophils # 0.1 10^3/uL (0.0-0.1); Basophils % 0.9 %; Eosinophils # 0.2 10^3/uL (0.0-0.8); Eosinophils % 2.2 %; Hematocrit 36.8 % (37.0-47.0); Hemoglobin 10.7 g/dL (11.5-15.3); Lymphocytes # 1.8 10^3/uL (0.8-4.8); Lymphocytes % 25.8 %; Mean Corpuscular HGB Conc 29.1 g/dL (30.0-36.0); Mean Corpuscular Hemoglobin 22.7 pg (28.0-34.0); Mean Platelet Volume 9.4 fL (7.4-10.4); Monocytes # 0.6 10^3/uL (0.2-0.9); Monocytes % 8.3 %; Neutrophils # 4.37 10^3/uL (1.8-7.7); Neutrophils % 62.7 %; Nucleated Red Blood Cells % 0 %; Platelet Count 338 10^3/cmm (130-400); Red Blood Count 4.72 10^6/uL (4.1-5.3); Red Cell Distribution Width 16.5 % (12.1-15.1)
[2020-09-16 14:04] LABS: INR 1.95 (0.8-1.2)
[2020-09-16 14:09] LABS: Blood Urea Nitrogen 18 mg/dL (8-23); Calcium 10.2 mg/dL (8.5-10.5); Carbon Dioxide 23 mmol/L (22-29); Chloride 101 mmol/L (98-107); Glucose 69 mg/dL (65-115); Osmolality Calculated 278 mOsm/kg (285-295); Sodium 134 mmol/L (136-145)
[2020-09-16 14:18] LABS: Anion Gap 13.8 (5-19); Potassium 3.8 mmol/L (3.5-5.1)
== END ==
LOC: CCL 10-29 15:05
PROVIDERS: PCP Internal Medicine; Visit Provider Internal Medicine Cardiovascular Disease
DX: R06.02 Shortness of breath (principal); R07.9 Chest pain, unspecified; R94.39 Abnormal result of other cardiovascular function study
CPT/HCPCS: 36415; 80048; 85025; 85610

== ENCOUNTER → 2020-09-16 14:05 | Outpatient (BNVA) | payer MEDICARE, SELFPAY | PROVIDERS: PCP Internal Medicine; Visit Provider Internal Medicine Cardiovascular Disease | DX: Z20.822 Contact with and (suspected) exposure to COVID-19 (principal) | CPT/HCPCS: 87635 ==

== ENCOUNTER → 2020-10-21 10:01 | Outpatient (BNVA) | payer MEDICARE, SELFPAY | PROVIDERS: PCP Internal Medicine; Visit Provider Internal Medicine Cardiovascular Disease | DX: Z01.812 Encounter for preprocedural laboratory examination (principal); Z20.822 Contact with and (suspected) exposure to COVID-19 | CPT/HCPCS: 87635 ==

== ENCOUNTER 2020-10-24 11:00 | Observation (INO) | payer MEDICARE, SELFPAY ==
[2020-10-21 10:53] LABS: Basophils # 0.1 10^3/uL (0.0-0.1); Basophils % 0.8 %; Eosinophils # 0.2 10^3/uL (0.0-0.8); Eosinophils % 2.2 %; Hematocrit 35.8 % (37.0-47.0); Hemoglobin 10.3 g/dL (11.5-15.3); Lymphocytes % 13.5 %; Mean Corpuscular HGB Conc 28.8 g/dL (30.0-36.0); Mean Corpuscular Hemoglobin 22.3 pg (28.0-34.0); Mean Corpuscular Volume 77.5 fL (81-99); Mean Platelet Volume 9.1 fL (7.4-10.4); Monocytes # 0.5 10^3/uL (0.2-0.9); Monocytes % 6.5 %; Neutrophils # 5.61 10^3/uL (1.8-7.7); Neutrophils % 76.6 %; Nucleated Red Blood Cells % 0 %; Platelet Count 319 10^3/cmm (130-400); Red Blood Count 4.62 10^6/uL (4.1-5.3); Red Cell Distribution Width 16.4 % (12.1-15.1); White Blood Count 7.3 10^3/uL (4.0-10.0)
[2020-10-21 11:08] LABS: INR 1.69 (0.83-1.21); Prothrombin Time (Patient) 20.3 Seconds (12.0-15.1)
[2020-10-21 11:17] LABS: Anion Gap 13.3 (5-19); Blood Urea Nitrogen 16 mg/dL (8-23); Calcium 9.8 mg/dL (8.5-10.5); Carbon Dioxide 23 mmol/L (22-29); Chloride 106 mmol/L (98-107); Glucose 188 mg/dL (65-115); Osmolality Calculated 292 mOsm/kg (285-295); Potassium 4.3 mmol/L (3.5-5.1); Sodium 138 mmol/L (136-145)
[2020-10-24] VITALS (27 sets, daily range): BP systolic 92–164; BP diastolic 39–91; PULSE 57–78; RESP 12–20; TEMP 36.4–37.2; O2SAT 94–100; BMI 32.5
--- NOTE | 2020-10-24 07:30 | XACV_ITS ---
Exam Room: [facility] Ht: 157 cm Wt: 81 kg BSA: 1.91 m2 Gender: Female : 1945 Any Known Allergies: Other Exam Priority: Routine Procedure(s): Procedure Description: Diagnostic procedure Procedure Description: Left Heart Catheterization Diagnostic Cath Status: Elective Diagnostic Findings * Left Main has no disease. * Mid Left Anterior Descending: severe 90% stenosis, LIZETTE: 3 flow. * Distal Left Anterior Descending: subtotal occlusion, LIZETTE: 3 flow. * Mid Right Coronary Artery: total occlusion, LIZETTE: 0 flow. * Proximal Circumflex: significant 80% stenosis, LIZETTE: 3 flow. * Coronary angiography shows right dominance. PCI Status: Elective PCI Indication: New Onset Angina <= 2 months Interventional Findings * Mid Left Anterior Descendin% stenosis treated with a AB MINI TREK 2.00X12 RX BALLOON, MDT R WILLY 3.0X26 TYLER, and MDT NC EUPHORA RX 3.68N54VF BALLOON. 0% residual stenosis, LIZETTE: 3 flow. * Distal Left Anterior Descendin% stenosis treated with a AB MINI TREK 2.00X12 RX BALLOON, and MDT R WILLY 2.5X12 TYLER. 0% residual stenosis, LIZETTE: 3 flow. * Proximal Circumflex: 80% stenosis treated with a MDT R WILLY 3.0X12 TYLER, and MDT NC EUPHORA RX 3.72Y74YH BALLOON. 0% residual stenosis, LIZETTE: 3 flow. Conclusions 1. There is total occlusion coronary artery disease with three vessel disease. 2. Mid Left Anterior Descending was treated with a Balloon, Drug Eluting Stent, and Balloon. 3. Distal Left Anterior Descending was treated with a Balloon, and Drug Eluting Stent. 4. Proximal Circumflex was treated with a Drug Eluting Stent, and Balloon. Recommendations * 1-Return to inpatient for close monitoring and routine cath care 2-Risk factor modification for secondary prevention 3-Statin and aspirin 81 mg life--long, if tolerated 4-Patient was pre-loaded with 600 mg of Plavix, continue Plavix 75mg p.o. daily for at least one year. We will assess at the end of one year again to continue if further or not 5-Continue optimal medical management 6-Follow up with cardiology in four weeks and your primary care in 10 days. Diagnostic RX Recommendation: PCI w/o planned CABG Clinical Evaluation EBL: 5mL-10mL Procedural Details Procedure Consent Obtained. Admit Source: Out Patient. Pre-Procedure Time Out. Identified patient by full name and date of as verbalized by the patient/guarantor. Does the consent match the physician's order: Yes. Accurate & Complete Informed Consent: Yes. Inpatient/Outpatient History & Physical on Chart: Yes. If H&P is completed, is and addenduem needed: Yes; If yes, is the addendum complete: N/A. Visualize and Verify Site with Patient/Guarantor: N/A. Relevant Radiology Images available: N/A. Pre-op teaching completed and patient verbalized understanding. The risks, benefits, and alternatives of sedation and/or procedure were discussed by physician. The patient agrees to continue. Procedure started. Correct patient, site and procedure confirmed by cath team. PERRLA. Strong, equal hand racket stringer bilaterally. Lungs clear x 5 lobes. IV Site on Arrival: 20 gauge in the left anticubital. Pre Procedural Pulses: bilateral dorsalis pedis was 1+. Pre Procedural Pulses: bilateral posterior tibial was 1+. Pre Procedural Pulses: bilateral radial was 3+. Oxygen started at 2liters/min via nasal canula. bilateral groins was prepped with chloroprep then draped in the usual sterile fashion. right radial was prepped with chloroprep then draped in the usual sterile fashion. Physician notified. Baseline sample Acquired. HR: 76 BPM. Physician arrived. Physician scrubbed in. Immediate Pre-Procedure Time Out. Correct Patient: Yes; Correct Procedure: Yes; Correct Site: Yes; Correct Patient Position: Yes; Correct Supplies: Yes; Dried Flammable Prep: Yes; Blood Products Available: N/A;. Lidocaine 1% infiltrated to the right radial. Arterial access obtained. A 5 indonesian TIG catheter in over wire. Multiple views taken of left coronary artery. Catheter redirected to the RCA. Multiple views taken of right coronary artery. Dr. Mccann updating family at this time to discuss bipass option. Fix with stent at this time. Side port of sheath attached to Normal Saline flush at KVO to maintain patency. Catheter out. 6 indonesian XB 3 guide catheter was inserted over the wire. Guide catheter out. 6 indonesian JL 3.5 guide catheter was inserted over the wire. Casar guidewire was advanced through the guide catheter to lesion in the mid LAD. ACT drawn. Results 360 seconds. Therapeutic limits - pre-heparin administration 90-150 seconds and monitoring heparin during a vascular procedure >250 seconds. Inflation number : 1 A AB MINI TREK 2.00X12 RX BALLOON was prepped and advanced across the Mid LAD , then inflated to 8 RADHA for 0:17 seconds. Inflation number: 2 The AB MINI TREK 2.00X12 RX BALLOON was reinflated across the Mid LAD, to 12 RADHA for 0:16 seconds. Inflation number: 1 The AB MINI TREK 2.00X12 RX BALLOON was reinflated across the Prox LAD, to 14 RADHA for 0:13 seconds. checking results. Balloon out. Inflation Number : 3 A MDT R WILLY 2.5X12 TYLER -Lot Number#[id number] exp date: 05-06-2022 was prepped and advanced across the Mid LAD. The stent was deployed at 16 RADHA for 0:33 seconds. Stent balloon out over wire. results checked. Inflation Number : 2 A MDT R WILLY 3.0X26 TYLER -Lot Number# [id number] exp date: 07-10-2022 was prepped and advanced across the Prox LAD. The stent was deployed at 12 RADHA for 0:35 seconds. Stent balloon out over wire. checking results. Inflation number : 3 A MDT NC EUPHORA RX 3.65Q89YQ BALLOON was prepped and advanced across the Prox LAD , then inflated to 10 RADHA for 0:23 seconds. Inflation number: 4 The MDT NC EUPHORA RX 3.95S68WW BALLOON was reinflated across the Prox LAD, to 14 RADHA for 0:16 seconds. Inflation number: 5 The MDT NC EUPHORA RX 3.26I05TJ BALLOON was reinflated across the Prox LAD, to 12 RADHA for 0:14 seconds. Balloon out. checking results. Casar repositioned to diaganol. Wire out. Runthrough guidewire was advanced through the guide catheter to lesion in the diaganol. Wire out. Osmel Hamilton RN updated family. Runthrough guidewire was advanced through the guide catheter to lesion in the diaganol. Runthrough repositioned to prox Circ. Inflation Number : 1 Ranjan Cohen WILLY 3.0X12 TYLER -Lot Number# [id number] exp date: 06-25-2022 was prepped and advanced across the Prox CX. The stent was deployed at 12 RADHA for 0:25 seconds. Stent balloon out over wire. checking results. Inflation number : 2 Ranjan VASQUEZ EUPHORA RX 3.42G69XB BALLOON was prepped and advanced across the Prox CX , then inflated to 10 RADHA for 0:25 seconds. Results checked. Balloon out. checking results. Guide catheter out. TR band placed. Hemostasis obtained. Post Procedure: Pulses reassessed and unchanged. PERRLA. Strong, equal hand racket stringer bilaterally. No VTE prophylaxis required. A TR Band was successful obtaining hemostatsis at the Right Radial artery insertion site. Contrast type used: Omnipaque 300 mgI/mL, 500 mL bottle. Contrast Material : Omnipaque 350 ml. Medication's Wasted: Lidocaine 1% = 16 mL. Medication's Wasted: Nitro = 49.6 mg. Medication's Wasted: Heparin = 4000 units. Medication's Wasted: Other = fentanyl 50 mg. Total IV fluids: 150 mL. [facility] Clinical Fraility Score: 4: Vulnerable. Food Service Manager Indications: New Onset Angina/ abnormal stress test. Chest Pain Symptom Assessment: Typical Angina Symptoms. Cardiovascular Instability: No,. Post-op diagnosis: stents to mid and dist LAD and to mid CX. Complications: none. Estimated blood loss: 5mL-10mL. Procedure completed. Patient transferred by wheelchair to ICU. Vital chart was stopped. Access Site Site: Right Radial artery Sheath Size: 6 Fr Hemostasis Method: TR Band Hemostasis Success: Successful Procedure Medications Start: 9:23 AM Stop: 9:23 AM Medication: Versed Amount: 1 mg Route: I.V. Start: 9:23 AM Stop: 9:23 AM Medication: Fentanyl Amount: 50 mcg Route: I.V. Start: 9:26 AM Stop: 9:26 AM Medication: Versed Amount: 1 mg Route: I.V. Start: 9:29 AM Stop: 9:29 AM Medication: Fentanyl Amount: 50 mcg Route: I.V. Start: 9:34 AM Stop: 9:34 AM Medication: Heparin Amount: 5000 units Route: I.V. Start: 9:34 AM Stop: 9:34 AM Medication: Versed Amount: 1 mg Route: I.V. Start: 9:50 AM Stop: 9:50 AM Medication: Heparin Amount: 2000 units Route: I.V. Start: 9:54 AM Stop: 9:54 AM Medication: Versed Amount: 1 mg Route: I.V. Start: 10:01 AM Stop: 10:01 AM Medication: Fentanyl Amount: 50 mcg Route: I.V. Start: 9:58 AM Stop: 9:58 AM Medication: Aggrastat 12.5 mg/250 mL Amount: 41 ml Route: I.V. bolus Start: 9:58 AM Stop: 9:58 AM Medication: Aggrastat 12.5 mg/250 mL Amount: 14.8 ml/hr Route: I.V. drip Start: 10:20 AM Stop: 10:20 AM Medication: Nitrogylcerin Amount: 200 mcg Route: I.A. Start: 10:21 AM Stop: 10:21 AM Medication: Versed Amount: 1 mg Route: I.V. Start: 10:34 AM Stop: 10:34 AM Medication: Versed Amount: 1 mg Route: I.V. Start: 10:46 AM Stop: 10:46 AM Medication: Plavix Amount: 600 mg Route: P.O. I, the attending physician, have reviewed and verified all procedure medications. Yes, all medications given per verbal order Report Signatures Finalized by Jazmine Mccann MD on 11/06/2020 06:35 PM
[2020-10-24] MEDS: diphenhydrAMINE 50 mg Capsule PO (07:50)
--- NOTE | 2020-10-24 08:52 | W.PM.OPSFHP ---
Same Day Surgery H&P Indication for Procedure/HPI DATE OF PROCEDURE: October 24, 2020 CHIEF COMPLAINT/INDICATIONFOR SURGICAL PROCEDURE: Abnormal stress test, chest pain PREOP DIAGNOSIS: Angina PLANNED PROCEDRUE: Operation Date: 10/24/20 08:30 Proposed Procedures p left Cardiac Catheterization 74771 [id number](Left) - Jazmine Mccann MD 74-year-old female past medical history significant for tobacco abuse hypertension hyperlipidemia diabetes mellitus PAD for worsening of chest pain shortness of breath underwent stress test which was suggestive of reversibility/ischemia in the region of RCA. Despite of optimization of medicine patient did not get better therefore she is being brought in for left heart cath and PCI if indicated. Patient has been explained in detail all risk benefit and alternative for the procedure. He has been explained the risk for major minor bleed, urgent emergent surgery, stroke, arrhythmia, . She understand risk for compartment syndrome. She would like to proceed with it. She is on warfarin. We plan to proceed with Plavix in case she requires stents. I am also plan to proceed with Plavix and warfarin for 6-month. After 6 months I am able stop Plavix and switch her to aspirin and warfarin. Patient understand the risk of short and long-term bleeding. Medications/Allergies* Home Medications Medication Instructions Recorded Confirmed Type citalopram 20 mg PO DAILY 07/13/19 10/23/20 History hydrocodone-acetaminophen 1 - 2 tab PO DAILY 07/13/19 10/23/20 History levothyroxine 75 mcg PO DAILY 07/13/19 10/23/20 History simvastatin 40 mg PO DAILY 07/13/19 10/23/20 History warfarin 3 mg PO DAILY 07/13/19 10/23/20 History Novolin N Flexpen 30 unit SUBCUT BID 05/10/20 10/24/20 History insulin aspart U-100 [Novolog 10 unit SUBCUT TID 05/10/20 10/23/20 History Flexpen U-100 Insulin] carvedilol 12.5 mg tablet 12.5 mg PO BID tab 08/14/20 10/23/20 History fluticasone propionate 50 1 spray INTRANASAL DAILY PRN 08/14/20 10/23/20 History mcg/actuation nasal spray,suspension omeprazole 40 mg capsule,delayed 40 mg PO DAILY 08/14/20 10/23/20 History release zonisamide 100 mg capsule 100 mg PO DAILY 08/14/20 10/23/20 History Allergies/Adverse Reactions Allergy/AdvReac Type Severity Reaction Status Date / Time [facility] Allergy ALGY-Difficulty Verified 10/24/20 08:28 Breathing Current Medications: Generic Name Dose Route Start Last Admin Trade Name Georgesq PRN Reason Stop Dose Admin Sodium Chloride 1,000 mls @ 50 mls/hr 10/24/20 07:30 10/24/20 08:40 Sodium Chloride 0.9% IV 10/25/20 03:29 Not Given .Q20H ONE Pertinent History/Comorbid Conditions* Medical History (Updated 10/05/20 @ 21:49 by Roni Lynn DPM) Atrial fibrillation and flutter Diabetes type I Severe hearing loss left side Vertigo Surgical History (Updated 06/11/20 @ 14:18 by Roni Lynn DPM) Hx of foot surgery left x 4 Hx of tubal ligation Hx of vaginal surgery removal of vagina Family History (Updated 07/21/19 @ 08:42 by Sarah Barbosa LPN) Denies family history of Diabetes CAD (coronary artery disease) Clotting disorder Dementia Hyperlipidemia Psychiatric illness Chronic kidney disease (CKD) Suicide Anesthesia complication Bleeding disorder Family history of premature coronary artery disease Lung disease Cancer Hypertension Stroke Social History Smoking and tobacco status: never smoked Alcohol intake: never Pertinent Exam Findings alert, oriented x 3 and clear to auscultation bilaterally Conscious Sedation Assessment AIRWAY EVAL/ANESTHESIA PLAN: ASA II, Risks, benefits & alternatives of sedation and/or procedure discussed and Patient agrees to continue as planned Recommendations Surgery/Procedure today Coding Level of Care Code Acute Produce Weigher for Cristian Marroquin
[2020-10-24 11:11] LABS: Glucose Point of Care 102 mg/dL (70-110)
[2020-10-24] MEDS: sodium chloride 0.9% 1,000 ML 100 ML IV ×2 (11:51→20:17)
[2020-10-24] MEDS: atorvastatin 40 mg Tablet 20 MG PO (14:27)
[2020-10-24] MEDS: HYDROcodone-acetaminophen 5-325 mg Tablet 1 TAB PO ×2 (14:32→20:40)
[2020-10-24 16:36] LABS: Glucose Point of Care 142 mg/dL (70-110)
[2020-10-24] MEDS: insulin nph human 100 units/1 mL 30 UNIT SUBCUT (17:31)
[2020-10-24] MEDS: carvedilol 12.5 mg Tablet PO (17:31)
[2020-10-24] MEDS: isosorbide mononitrate ER 30 mg Tablet 15 MG PO (17:31)
--- NOTE | 2020-10-24 18:28 | PC.NURSE ---
TR Band removal, located left wrist 1315: 2ml of air removed 1440: 2ml of air removed 1530: 3ml of air removed 1615: 2ml of air removed 1650: 2ml of air removed 1745: 2ml of air removed 1815: 2ml of air removed A total of 15ml of air removed from TR band. No bleeding noted at site, TR band removed and bandaid placed per protocol. Patient tolerated well.
[2020-10-24] MEDS: warfarin 3 mg Tablet PO (21:39)
[2020-10-24 21:44] LABS: Glucose Point of Care 226 mg/dL (70-110)
[2020-10-25] VITALS (12 sets, daily range): BP systolic 102–134; BP diastolic 35–53; PULSE 58–82; RESP 12–18; TEMP 36.6–36.8; O2SAT 96–97
[2020-10-25 05:46] LABS: Basophils % 0.6 %; Eosinophils # 0.2 10^3/uL (0.0-0.8); Eosinophils % 2.8 %; Hematocrit 30.7 % (37.0-47.0); Hemoglobin 9.1 g/dL (11.5-15.3); Lymphocytes # 0.9 10^3/uL (0.8-4.8); Lymphocytes % 14.2 %; Mean Corpuscular HGB Conc 29.6 g/dL (30.0-36.0); Mean Corpuscular Hemoglobin 22.6 pg (28.0-34.0); Mean Corpuscular Volume 76.2 fL (81-99); Mean Platelet Volume 9.6 fL (7.4-10.4); Monocytes # 0.7 10^3/uL (0.2-0.9); Monocytes % 11.4 %; Neutrophils # 4.52 10^3/uL (1.8-7.7); Neutrophils % 70.8 %; Nucleated Red Blood Cells % 0 %; Platelet Count 267 10^3/cmm (130-400); Red Blood Count 4.03 10^6/uL (4.1-5.3); Red Cell Distribution Width 16.2 % (12.1-15.1); White Blood Count 6.4 10^3/uL (4.0-10.0)
[2020-10-25] MEDS: sodium chloride 0.9% 1,000 ML 100 ML IV (05:55)
[2020-10-25 06:08] LABS: Anion Gap 12.7 (5-19); Blood Urea Nitrogen 12 mg/dL (8-23); Calcium 9.1 mg/dL (8.5-10.5); Carbon Dioxide 22 mmol/L (22-29); Chloride 109 mmol/L (98-107); Creatinine Clr Calc Pharmacy 60.7318; Glucose 98 mg/dL (65-115); Osmolality Calculated 290 mOsm/kg (285-295); Potassium 3.7 mmol/L (3.5-5.1); Sodium 140 mmol/L (136-145)
--- NOTE | 2020-10-25 07:28 | PM.DCS ---
Discharge Providers Date of Admission: 10/24/20 11:00 Date of Discharge: October 25, 2020 Attending Provider at Admission: Jazmnie Mccann MD Attending Provider at Discharge: Jazmine Mccann MD Primary Care Provider: Teri Roca MD Reason for Visit Reason for Visit: [facility] Hospital Course Hospital Course 75-year-old female past medical history significant hypertension hyperlipidemia diabetes mellitus for worsening of chest pain shortness of breath abnormal stress test underwent coronary angiogram which showed chronically occluded RCA but significant disease of proximal distal LAD and circumflex. Patient rule out the option for CABG before the cath. It was also discussed with the family which would like to proceed with the patient's wishes. Proximal and distal LAD was treated with drug-eluting stents similarly proximal circumflex was also fixed with a stent. Post PCI course remained uncomplicated. Patient is doing fine from a cardiovascular perspective. Wrist wound looks good. She will be discharged home today Physical Exam Narrative: EXAM NARRATIVE: GENERAL: Patient is alert, awake and oriented x3. NECK: No jugular vein distension. HEENT: No cyanosis. No icterus. No pallor. HEART: Regular S1 and S2. No murmur, rub or gallop. LUNGS: Clear to auscultate bilaterally. ABDOMEN: Soft, nontender and nondistended. Positive bowel sounds. No guarding, rebound or tenderness. CENTRAL NERVOUS SYSTEM: Grossly nonfocal. EXTREMITIES: Lower extremities without edema bilaterally. Discharge Data Data Completed and Pending: Pending at discharge Category Date Time Status ROLFER request for service Routin e Exams 10/24/20 07:30 Taken Labs from last 24 hours 10/25/20 10/25/20 10/24/20 04:15 04:15 21:38 WBC 6.4 RBC 4.03 L Hgb 9.1 L Hct 30.7 L MCV 76.2 L MCH 22.6 L MCHC 29.6 L RDW 16.2 H Plt Count 267 MPV 9.6 Neut % (Auto) 70.8 Lymph % (Auto) 14.2 [place] % (Auto) 11.4 Eos % (Auto) 2.8 Baso % (Auto) 0.6 Neut # (Auto) 4.52 Lymph # (Auto) 0.9 [place] # (Auto) 0.7 Eos # (Auto) 0.2 Baso # (Auto) 0.0 Nucleated RBC % (a uto) 0 Nucleated RBCs # 0.0 Sodium 140 Potassium 3.7 Chloride 109 H Carbon Dioxide 22 Anion Gap 12.7 BUN 12 Creatinine 0.5 GFR Calculation Not Reportable Glucose 98 POC Glucose 226 H Calculated Osmolal ity 290 Calcium 9.1 10/24/20 10/24/20 16:33 11:10 WBC RBC Hgb Hct MCV MCH MCHC RDW Plt Count MPV Neut % (Auto) Lymph % (Auto) [place] % (Auto) Eos % (Auto) Baso % (Auto) Neut # (Auto) Lymph # (Auto) [place] # (Auto) Eos # (Auto) Baso # (Auto) Nucleated RBC % (a uto) Nucleated RBCs # Sodium Potassium Chloride Carbon Dioxide Anion Gap BUN Creatinine GFR Calculation Glucose POC Glucose 142 H 102 Calculated Osmolal ity Calcium Vitals: Last Vital Signs Temp 98.3 F 10/25/20 06:00 Pulse 69 10/25/20 06:00 Resp 15 10/25/20 06:00 BP 117/50 10/25/20 06:00 Pulse Ox 96 10/25/20 06:00 Discharge Plan Discharge Patient Disposition: Home Condition: Stable Prescriptions: New pantoprazole [Protonix] 40 mg tablet,delayed release (DR/EC) 40 mg PO DAILY Qty: 90 RF: 3 Continued (DME) Left AFO See Rx Instructions .Route .MEDSUPPLY Qty: 1 RF: 0 (DME) Diabetic Shoes See Rx Instructions .Route .MEDSUPPLY Qty: 1 RF: 0 (DME) Left toe filler See Rx Instructions .Route .MEDSUPPLY Qty: 1 RF: 0 zonisamide [Zonegran] 100 mg capsule 100 mg PO DAILY RF: 0 (DME) CAM WALKER See Rx Instructions .ROUTE .MEDSUPPLY Qty: 1 RF: 0 (DME) Toe Filler See Rx Instructions .Route .MEDSUPPLY Qty: 1 RF: 0 insulin aspart U-100 [Novolog Flexpen U-100 Insulin] 100 unit/mL (3 mL) Insulin Pen 10 unit SUBCUT TID RF: 0 nitroglycerin 0.4 mg tablet, sublingual 0.4 mg sublingual Q5M RF: 0 clopidogrel 75 mg tablet 75 mg PO DAILY Qty: 90 RF: 0 simvastatin 40 mg tablet 40 mg PO DAILY RF: 0 levothyroxine 75 mcg tablet 75 mcg PO DAILY RF: 0 citalopram 20 mg tablet 20 mg PO DAILY RF: 0 hydrocodone-acetaminophen 7.5-325 mg tablet 1 - 2 tab PO DAILY RF: 0 carvedilol 12.5 mg tablet 12.5 mg PO BID RF: 0 Discontinued omeprazole 40 mg capsule,delayed release(DR/EC) 40 mg PO DAILY RF: 0 isosorbide mononitrate 30 mg tablet extended release 24 hr 30 mg PO BID RF: 0 enoxaparin 80 mg/0.8 mL syringe 80 mg SUBCUT Q12H RF: 0 Discharge Orders: Discharge Order (Routine); Ordered 10/25/20 Ordered By: Jazmine Mccann Referrals: Jazmine Mccann MD [Physician] - 6 Weeks (WILL NEED TO SCHEDULE FOLLOW UP WITH DR. MCCANN WHEN SCHEDULING WITH CELESTINO HUGHES .AT TIME OF FOLLOW UP ) Celestino Hughes FNP [Nurse Practitioner] - 4-7 days (WILL NEED TO CALL FOR AN FOLLOW UP APPOINTMENT WITH [facility]ST[facility]GHES [facility] , FOR FOLLOW UP WILL NEED WOUND CHECK AND LAB TEST PLEASE CALL EARLY .) Discharge Diet: Cardiac Discharge Activity: Increase activity as tolerated Patient Instructions: Pantoprazole (By mouth), Left Heart Catheterization (DC), Coronary Intravascular Stent Placement (DC), Opioid Safety, Post Angiogram Home Care Instructions Activity Restrictions/Additional Instructions: Follow-up with Celestino Hughes in 7 days, follow-up with in 6 to 8 weeks PLEASE CALL FOR FOLLOW UP PLEASE SEE REFERRAL APPOINTMENTS Discharge Attestations Time Spent in Discharge Care*: less than 30 min Specific Discharge Activities: educating patient Quality Metrics Clinical Quality Measures During this hospital stay, did patient experience: None Coding Level of Care Code New Pt Acute Chg FW DC note Patient Type New History Detailed Exam Detailed Medical Decision Making Moderate Complexity
[2020-10-25] MEDS: zonisamide 100 MG Capsule PO (08:40)
[2020-10-25] MEDS: citalopram 20 mg Tablet PO (08:40)
[2020-10-25] MEDS: HYDROcodone-acetaminophen 5-325 mg Tablet 1 TAB PO (08:40)
[2020-10-25] MEDS: pantoprazole DR 40 mg Tablet PO (08:40)
[2020-10-25] MEDS: levothyroxine 75 mcg Tablet PO (08:40)
[2020-10-25] MEDS: carvedilol 12.5 mg Tablet PO (08:40)
[2020-10-25] MEDS: clopidogrel 75 mg Tablet PO (08:40)
[2020-10-25] MEDS: insulin nph human 100 units/1 mL 30 UNIT SUBCUT (08:41)
[2020-10-25] MEDS: isosorbide mononitrate ER 30 mg Tablet 15 MG PO (08:41)
[2020-10-25] MEDS: atorvastatin 40 mg Tablet 20 MG PO (08:51)
== END 2020-10-25 09:40 | disposition home or self-care (01) ==
LOC: CCL 10-25 00:29 → ICU 10-25 00:29
PROVIDERS: Admitting Provider Internal Medicine Cardiovascular Disease; PCP Internal Medicine; Visit Provider Internal Medicine Cardiovascular Disease
DX: I25.10 Atherosclerotic heart disease of native coronary artery without angina pectoris (principal); I25.82 Chronic total occlusion of coronary artery; Z87.891 Personal history of nicotine dependence; E78.5 Hyperlipidemia, unspecified; Z79.4 Long term (current) use of insulin; I48.91 Unspecified atrial fibrillation; E10.9 Type 1 diabetes mellitus without complications
CPT/HCPCS: 36415; 36416; 80048; 82962; 85025; 85347; 85610; 93454; 96372; C1725; C1769; C1874; C1887; C1894; C9600; C9601; G0378; J1644; J1815; J2250; J3010; J3246; J3490; J7030; Q0163; Q9967

== ENCOUNTER → 2020-10-31 15:54 | Outpatient (BNVA) | payer MEDICARE, SELFPAY | PROVIDERS: PCP Internal Medicine; Visit Provider Nurse Practitioner Family | DX: I25.10 Atherosclerotic heart disease of native coronary artery without angina pectoris (principal) | CPT/HCPCS: 80048 ==

== ENCOUNTER → 2020-11-07 07:55 | Day surgery (SDC) | payer MEDICARE, SELFPAY ==
[2020-11-07 08:04] VITALS: BP 131/68; PULSE 66; RESP 16; TEMP 36.6; O2SAT 97; BMI 31.2
[2020-11-07] MEDS: ferric carboxy (IVPB) 750 MG in sodium chloride 0.9% (100 ml) 100 ML 345 MG IV (08:23)
== END ==
LOC: GILAB 07:57
PROVIDERS: PCP Internal Medicine; Visit Provider Internal Medicine
DX: D50.9 Iron deficiency anemia, unspecified (principal)
CPT/HCPCS: 96365; J1439

== ENCOUNTER → 2020-11-14 07:10 | Day surgery (SDC) | payer MEDICARE, SELFPAY ==
[2020-11-14 07:32] VITALS: BP 114/40; PULSE 58; RESP 18; TEMP 36.3; O2SAT 96
[2020-11-14] MEDS: ferric carboxy (IVPB) 750 MG in sodium chloride 0.9% (100 ml) 100 ML 345 MG IV (07:51)
[2020-11-14 07:59] VITALS: BMI 31.4
== END ==
LOC: GILAB 07:11
PROVIDERS: PCP Internal Medicine; Visit Provider Internal Medicine
DX: D50.9 Iron deficiency anemia, unspecified (principal)
CPT/HCPCS: 96365; J1439

== ENCOUNTER 2021-02-11 11:41 | Outpatient (CLI) | payer MEDICARE, SELFPAY ==
--- NOTE | 2021-02-11 12:03 | CT_ITS ---
WS: [id number] CT HEAD NONCONTRAST HISTORY: CONCUSSION W LOSS OF CONSCIOUSNESS OF UNSPECIFIED DURATION TECHNIQUE: Contiguous axial imaging performed through the brain in 2.5 mm imaging. Bone and soft tiss ue windows. All CT scans at [facility] use at least one of these dose optimization techniq ues: automated exposure control; mA and/or kV adjustment per patient size (includes targeted exams wh ere dose is matched to clinical indication); or iterative reconstruction. DLP: 859.77 mGycm COMPARISON: 02/07/2017 No acute intracranial hemorrhage, midline shift or mass effect. Very mild atrophy. LEFT sylvian fissure is larger than the RIGHT which may be due to atrophy or conge nital. No interval change. Ventricles: Normal size with no hydrocephalus. Paranasal sinuses: As visualized are clear. Mastoid air cells: Mild coalescence of mastoid air cells. Calvarium and scalp: Skull is intact. Very minimal soft tissue induration over the RIGHT frontal sincere on. CT/CT head wo con* [id number] IMPRESSION: 1. No acute intracranial hemorrhage or edema. 2. Very mild atrophy. 3. No skull fracture. Minimal scalp induration over the RIGHT frontal bone.
== END 2021-02-11 11:42 | disposition home or self-care (01) ==
PROVIDERS: PCP Internal Medicine; Visit Provider Internal Medicine
DX: S06.0X9A Concussion with loss of consciousness of unspecified duration, initial encounter (principal); X58.XXXA Exposure to other specified factors, initial encounter; G31.9 Degenerative disease of nervous system, unspecified
CPT/HCPCS: 70450

== ENCOUNTER 2021-03-04 07:46 | Outpatient (CLI) | payer MEDICARE, SELFPAY ==
--- NOTE | 2021-03-04 08:08 | MR_ITS ---
WS: [id number] MRI RIGHT SHOULDER NONCONTRAST TECHNIQUE: Sagittal T2, coronal T1, T2 and proton density imaging. Axial gradient PDE imaging. CLINICAL INFORMATION: PAIN IN RIGHT SHOULDER COMPARISON: None. 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 Tiny amount of subacromial/subdeltoid fluid. Mild narrowing of the subacromial space. Impingement on the distal sup raspinatus with tendinopathy in the distal supraspinatus. Chronic thinning of the distal tendon. Smal l undersurface insertional tear at the supraspinatus insertion. Slight subacromial spurring. Normal infraspinatus. Normal teres minor. Normal subscapularis. Biceps tendon is intact within the bicipital groove. Intrasubstance high-grade tear involving the intra-articular biceps tendon extendin g to the biceps labral anchor. Glenoid labrum appears grossly normal. Biceps tear extends slightly in to the proximal biceps tendon in the bicipital groove. Small amount of edema along the greater tubero sity likely degenerative. MR/MR shoulder RT wo con* [id number] IMPRESSION: 1. Small undersurface insertional tear distal supraspinatus with tendinopathy and chronic thinning. 2. High-grade tear of the intra-articular biceps tendon with T2 signal abnorma lity. This extends to the biceps labral anchor. Slight extension into the proxi mal biceps tendon in the bicipital groove 3. Glenoid labrum appears grossly normal. 4. Proximal biceps tendon otherwise intact within the bicipital groove. 5. Rotator cuff is otherwise normal in appearance. 6. Moderate degenerative arthritis at the AC joint with a small amount of suba cromial/subdeltoid fluid. 7. No visualized fractures.
== END 2021-03-04 07:47 | disposition home or self-care (01) ==
PROVIDERS: PCP Internal Medicine; Visit Provider Internal Medicine
DX: M19.011 Primary osteoarthritis, right shoulder (principal); M75.101 Unspecified rotator cuff tear or rupture of right shoulder, not specified as traumatic
CPT/HCPCS: 73221

== ENCOUNTER 2021-09-23 14:57 | Outpatient (CLI) | payer MEDICARE, SELFPAY ==
--- NOTE | 2021-09-23 15:00 | USCV_ITS ---
Caro Arcos Age: 75 Gender: F : 1945 Exam Date: 09/23/2021 15:47 Ordering Phys: Ellen Cervantes Technologist: Marisa Ruiz [place] [facility] [place]: Aortic stenosis BP: / HR: 53 Rhythm: Sinus Technical Quality: Technically difficult study MEASUREMENTS (Male / Female) Normal Values 2D ECHO LV Diastolic Diameter PLAX 3.8 cm 4.2 - 5.9 / 3.9 - 5.3 cm LV Systolic Diameter PLAX 2.3 cm LV Chamber Size 3.4 cm IVS Diastolic Thickness 0.9 cm 0.6 - 1.0 / 0.6 - 0.9 cm IVS Systolic Thickness 1.3 cm LVPW Diastolic Thickness 1.3 cm 0.6 - 1.0 / 0.6 - 0.9 cm LVPW Systolic Thickness 2.0 cm RV Chamber Size 2.7 cm LVOT Diameter 2.1 cm LV Ejection Fraction 2D Teich 71.2 % LV Ejection Fraction MOD 2C 59.5 % LV Ejection Fraction 2C AL 58.8 % LA Diameter 3.3 cm LA Width 4.3 cm LA Height 4.8 cm RA Width 4.0 cm RA Height 4.0 cm Aorta at Sinotubular Diameter 2.0 cm M-MODE Aortic Annulus Diameter 2.2 cm LA Ao Ratio MM 2.0 MV E Point Septal Separation 0.9 cm DOPPLER AV Peak Velocity 265.3 cm/s LVOT Peak Velocity 85.6 cm/s AV Area Cont Eq vti 1.1 cm squared AV Area Cont Eq pk 1.1 cm squared MV Area PHT 2.0 cm squared Mitral E to A Ratio 1.0 MV E' Velocity 59.0 cm/s Mitral E to MV E' Ratio 18.2 Mitral E to LV E' Lateral Ratio 20.9 Mitral E to LV E' Septal Ratio 16.3 PV Peak Velocity 53.0 cm/s RV Acceleration Time 0.2 s RV Ejection Time 0.4 s RV AcT/ET 0.4 FINDINGS Left Ventricle Normal left ventricular size. Mildly decreased left ventricular systolic function. Left ventricular ejection fraction is estimated at 50%. Mild global hypokinesis. Grade II diastolic dysfunction, moderately elevated filling pressures. Right Ventricle Normal right ventricular size and systolic function. RVSP could not be calculated due to incomplete tricuspid regurgitation velocity profile. Right Atrium Normal right atrial size. Left Atrium Mildly increased left atrial size. Mitral Valve Mild mitral annular calcification. Mildly thickened mitral valve. No mitral valve stenosis. No mitral valve regurgitation. Aortic Valve Aortic valve not well visualized. Moderate aortic valve stenosis, peak velocity 3.2 m/s, peak gradient 41 mm Hg, mean gradient 22 mmHg, JACOBY 1.1 cm squared. Dimensionless valve index of 0.28. Mild aortic valve regurgitation. Tricuspid Valve Structurally normal tricuspid valve. Trace tricuspid valve regurgitation. Pulmonic Valve Pulmonic valve not well visualized. Pericardium No pericardial effusion. Aorta Aorta not well visualized. CONCLUSIONS 1. This is a technically difficult study. 2. Normal left ventricular size. Mildly decreased left ventricular systolic function. Left ventricular ejection fraction is estimated at 50 %. Mild global hypokinesis. Grade II diastolic dysfunction, moderately elevated filling pressures. 3. Moderate aortic valve stenosis, peak velocity 3.2 m/s, peak gradient 41 mm Hg, mean gradient 22 mmHg, JACOBY 1.1 cm squared. Dimensionless valve index of 0.28. Mild aortic valve regurgitation. 4. When compared to previous echocardiogram dated 09/09/2020, mean gradient through AV seems to have increased and left ventricle systolic function may have decreased. Olya Hyatt MD (Electronically Signed) Final Date: 29 September 2021 12:14 S
== END 2021-09-23 14:58 | disposition home or self-care (01) ==
LOC: RAD 15:00
PROVIDERS: PCP Internal Medicine; Visit Provider Internal Medicine
DX: I35.0 Nonrheumatic aortic (valve) stenosis (principal)
CPT/HCPCS: 93306

== ENCOUNTER → 2021-10-21 12:26 | Outpatient (BNVA) | payer MEDICARE, SELFPAY | PROVIDERS: PCP Internal Medicine; Visit Provider Internal Medicine Cardiovascular Disease | DX: I35.0 Nonrheumatic aortic (valve) stenosis (principal); I25.119 Atherosclerotic heart disease of native coronary artery with unspecified angina pectoris; I48.91 Unspecified atrial fibrillation; I48.92 Unspecified atrial flutter; E10.9 Type 1 diabetes mellitus without complications; Z79.4 Long term (current) use of insulin | CPT/HCPCS: 99213; 99214 ==

== ENCOUNTER → 2023-02-04 13:50 | Outpatient (BNVA) | payer MEDICARE, SELFPAY | PROVIDERS: PCP Internal Medicine; Visit Provider Podiatrist Foot & Ankle Surgery | DX: E11.8 Type 2 diabetes mellitus with unspecified complications (principal); E11.42 Type 2 diabetes mellitus with diabetic polyneuropathy; Z79.4 Long term (current) use of insulin; R26.89 Other abnormalities of gait and mobility; Z89.432 Acquired absence of left foot | CPT/HCPCS: 99214 ==

== ENCOUNTER → 2023-02-24 13:11 | Outpatient (BNVA) | payer MEDICARE, SELFPAY | PROVIDERS: PCP Internal Medicine; Referring Provider Nurse Practitioner Family; Visit Provider Internal Medicine Cardiovascular Disease | DX: E10.42 Type 1 diabetes mellitus with diabetic polyneuropathy (principal); Z79.4 Long term (current) use of insulin; I35.0 Nonrheumatic aortic (valve) stenosis; I25.119 Atherosclerotic heart disease of native coronary artery with unspecified angina pectoris; I48.91 Unspecified atrial fibrillation; I48.92 Unspecified atrial flutter | CPT/HCPCS: 99213 ==

== ENCOUNTER → 2023-03-16 14:02 | Outpatient (BNVA) | payer MEDICARE, SELFPAY | PROVIDERS: PCP Internal Medicine; Visit Provider Podiatrist Foot & Ankle Surgery | DX: E11.42 Type 2 diabetes mellitus with diabetic polyneuropathy (principal); Z79.4 Long term (current) use of insulin; Z89.439 Acquired absence of unspecified foot; R26.89 Other abnormalities of gait and mobility; E11.8 Type 2 diabetes mellitus with unspecified complications; L97.512 Non-pressure chronic ulcer of other part of right foot with fat layer exposed; E11.621 Type 2 diabetes mellitus with foot ulcer | CPT/HCPCS: 99213 ==

== ENCOUNTER 2023-05-24 14:03 | Outpatient (CLI) | payer MEDICARE, SELFPAY ==
--- NOTE | 2023-05-24 14:15 | USCV_ITS ---
Caro Arcos Age: 77 Gender: F : 1945 Exam Date: 05/24/2023 14:35 Ordering Phys: Enrique Calloway MD ([email or web address]) Technologist: Caty Miller [place] [facility] [place]ication: , CAD BP: 120 / 62 HR: 60 Rhythm: Sinus Technical Quality: Adequate MEASUREMENTS (Male / Female) Normal Values 2D ECHO LV Diastolic Diameter PLAX 2.7 cm 4.2 - 5.9 / 3.9 - 5.3 cm LV Systolic Diameter PLAX 1.7 cm IVS Diastolic Thickness 1.4 cm 0.6 - 1.0 / 0.6 - 0.9 cm IVS Systolic Thickness 1.6 cm LVPW Diastolic Thickness 1.4 cm 0.6 - 1.0 / 0.6 - 0.9 cm LVPW Systolic Thickness 1.9 cm LVOT Diameter 2.0 cm LV Ejection Fraction 2D Teich 71.6 % LV Ejection Fraction MOD 2C 57.2 % LV Ejection Fraction 2C AL 58.1 % LA Diameter 2.9 cm LA Width 3.8 cm LA Height 4.8 cm RA Width 3.4 cm RA Height 4.2 cm Aorta at Sinotubular Diameter 2.0 cm IVC Diameter 1.2 cm M-MODE Aortic Annulus Diameter 2.6 cm LA Ao Ratio MM 1.0 MV E Point Septal Separation 1.2 cm DOPPLER AV Peak Velocity 319.0 cm/s LVOT Peak Velocity 80.0 cm/s AV Area Cont Eq vti 0.9 cm squared AV Area Cont Eq pk 0.8 cm squared MV Peak Velocity 121.0 cm/s MV Area PHT 2.6 cm squared Mitral E to A Ratio 0.8 MV E' Velocity 51.0 cm/s Mitral E to MV E' Ratio 18.2 Mitral E to LV E' Lateral Ratio 15.6 Mitral E to LV E' Septal Ratio 21.9 TR Peak Velocity 75.0 cm/s TR Peak Gradient 2.3 mmHg Right Atrial Pressure 5.0 mmHg Pulmonary Artery Systolic Pressu 7.3 mmHg PV Peak Velocity 217.0 cm/s RV Acceleration Time 0.1 s RV Ejection Time 0.3 s RV AcT/ET 0.3 FINDINGS Left Ventricle Normal left ventricular size, systolic function and wall thickness, with no regional wall motion abnormalities. Left ventricular ejection fraction is estimated at 55 %. Grade I/IV diastolic dysfunction (abnormal relaxation filling pattern), normal to mildly elevated filling pressures. Right Ventricle Normal right ventricular size and systolic function. Normal right ventricular systolic pressure. Right Atrium The right atrium is normal in size. Left Atrium Mildly increased left atrial size. Mitral Valve Structurally normal mitral valve without significant stenosis or prolapse. There is no mitral regurgitation. Aortic Valve Structurally normal trileaflet aortic valve. Moderate aortic valve calcification. Moderate aortic valve regurgitation. Moderate aortic valve stenosis, mean gradient 22.8 mmHg, JACOBY 0.92 cm squared. Visually the valve appears to be moderately stenosed. The gradient is consistent with this. The calculated valve area overestimates the severity of the stenosis. Tricuspid Valve Structurally normal tricuspid valve. Trace tricuspid valve regurgitation. Pulmonic Valve Pulmonic valve not well visualized. Pericardium Normal pericardium without effusion. Aorta Normal ascending aorta dimension. IVC The inferior vena cava appears normal. CONCLUSIONS Normal left ventricular size, systolic function and wall thickness, with no regional wall motion abnormalities. Left ventricular ejection fraction is estimated at 55 %. Grade I/IV diastolic dysfunction (abnormal relaxation filling pattern), normal to mildly elevated filling pressures. Mildly increased left atrial size. Structurally normal trileaflet aortic valve. Moderate aortic valve calcification. Moderate aortic valve regurgitation. Moderate aortic valve stenosis, mean gradient 22.8 mmHg, JACOBY 0.92 cm squared. Visually the valve appears to be moderately stenosed. The gradient is consistent with this. The calculated valve area overestimates the severity of the stenosis. From the previous study dictated 09/29/2021, there has been no real change. Aortic stenosis remains moderate. The aortic insufficiency may have increased slightly. Dr. Enrique Calloway MD (Electronically Signed) Final Date: 25 May 2023 15:46 S
== END 2023-05-24 14:04 | disposition home or self-care (01) ==
LOC: RAD 14:04
PROVIDERS: PCP Internal Medicine; Visit Provider Internal Medicine Cardiovascular Disease
DX: I35.0 Nonrheumatic aortic (valve) stenosis (principal); I25.10 Atherosclerotic heart disease of native coronary artery without angina pectoris; I51.89 Other ill-defined heart diseases; I35.8 Other nonrheumatic aortic valve disorders; I35.2 Nonrheumatic aortic (valve) stenosis with insufficiency
CPT/HCPCS: 93306

== ENCOUNTER → 2023-11-18 11:39 | Outpatient (BNVA) | payer MEDICARE, SELFPAY | PROVIDERS: PCP Internal Medicine; Visit Provider Internal Medicine Cardiovascular Disease | DX: I48.91 Unspecified atrial fibrillation (principal); I48.92 Unspecified atrial flutter; I25.119 Atherosclerotic heart disease of native coronary artery with unspecified angina pectoris; I35.0 Nonrheumatic aortic (valve) stenosis; E10.9 Type 1 diabetes mellitus without complications; Z79.4 Long term (current) use of insulin; Z98.61 Coronary angioplasty status | CPT/HCPCS: 99213 ==

== ENCOUNTER → 2024-05-02 10:37 | Outpatient (BNVA) | payer MEDICARE, SELFPAY | PROVIDERS: PCP Internal Medicine; Visit Provider Podiatrist Foot & Ankle Surgery | DX: M86.272 Subacute osteomyelitis, left ankle and foot (principal); E11.42 Type 2 diabetes mellitus with diabetic polyneuropathy; Z79.4 Long term (current) use of insulin; L97.513 Non-pressure chronic ulcer of other part of right foot with necrosis of muscle; E11.621 Type 2 diabetes mellitus with foot ulcer; Z89.432 Acquired absence of left foot | CPT/HCPCS: 11043 ==

== ENCOUNTER → 2024-05-10 09:52 | Outpatient (BNVA) | payer MEDICARE, SELFPAY | PROVIDERS: PCP Internal Medicine; Visit Provider Podiatrist Foot & Ankle Surgery | DX: E11.42 Type 2 diabetes mellitus with diabetic polyneuropathy (principal); Z79.4 Long term (current) use of insulin; Z89.439 Acquired absence of unspecified foot; L97.513 Non-pressure chronic ulcer of other part of right foot with necrosis of muscle; Z89.432 Acquired absence of left foot | CPT/HCPCS: 99213 ==

== ENCOUNTER → 2024-07-06 15:46 | Outpatient (BNVA) | payer MEDICARE, SELFPAY | PROVIDERS: PCP Internal Medicine; Visit Provider Internal Medicine Cardiovascular Disease | DX: I35.0 Nonrheumatic aortic (valve) stenosis (principal); R07.9 Chest pain, unspecified; Z98.61 Coronary angioplasty status; I48.91 Unspecified atrial fibrillation; I48.92 Unspecified atrial flutter; E11.42 Type 2 diabetes mellitus with diabetic polyneuropathy; Z79.4 Long term (current) use of insulin; Z89.439 Acquired absence of unspecified foot | CPT/HCPCS: 99204 ==

== ENCOUNTER → 2024-11-14 11:25 | Outpatient (BNVA) | payer MEDICARE, SELFPAY | PROVIDERS: PCP Internal Medicine; Visit Provider Podiatrist Foot & Ankle Surgery | DX: E11.621 Type 2 diabetes mellitus with foot ulcer (principal); L97.512 Non-pressure chronic ulcer of other part of right foot with fat layer exposed; E11.42 Type 2 diabetes mellitus with diabetic polyneuropathy; Z79.4 Long term (current) use of insulin; L03.115 Cellulitis of right lower limb; Z89.432 Acquired absence of left foot | CPT/HCPCS: 11042; 99214 ==

== ENCOUNTER → 2025-01-03 13:30 | Outpatient (BNVA) | payer MEDICARE, SELFPAY | PROVIDERS: PCP Internal Medicine; Visit Provider Podiatrist Foot & Ankle Surgery | DX: E11.42 Type 2 diabetes mellitus with diabetic polyneuropathy (principal); Z79.4 Long term (current) use of insulin; L60.3 Nail dystrophy; Z89.432 Acquired absence of left foot | CPT/HCPCS: 11720 ==

== ENCOUNTER → 2025-02-07 09:48 | Outpatient (BNVA) | payer MEDICARE, SELFPAY | PROVIDERS: PCP Internal Medicine; Visit Provider Internal Medicine Cardiovascular Disease | DX: I25.10 Atherosclerotic heart disease of native coronary artery without angina pectoris (principal); I48.91 Unspecified atrial fibrillation; I48.92 Unspecified atrial flutter; Z79.02 Long term (current) use of antithrombotics/antiplatelets; I35.0 Nonrheumatic aortic (valve) stenosis; I10 Essential (primary) hypertension; Z98.61 Coronary angioplasty status | CPT/HCPCS: 99214 ==

== ENCOUNTER 2025-02-08 10:05 | Outpatient (CLI) | payer MEDICARE, SELFPAY ==
--- NOTE | 2025-02-08 14:15 | USCV_ITS ---
Caro Arcos Age: 79 Gender: F : 1945 Exam Date: 02/08/2025 10:34 Ordering Phys: Jazmine Mccann MD ([email or web address]) Technologist: LISSETTE [place] [facility] [place]: Aortic Stenosis BP: 138 / 50 HR: 56 Rhythm: Sinus Technical Quality: Adequate MEASUREMENTS (Male / Female) Normal Values 2D ECHO LV Diastolic Diameter PLAX 4.8 cm 4.2 - 5.9 / 3.9 - 5.3 cm IVS Diastolic Thickness 1.0 cm 0.6 - 1.0 / 0.6 - 0.9 cm IVS Systolic Thickness 1.9 cm LVPW Diastolic Thickness 1.4 cm 0.6 - 1.0 / 0.6 - 0.9 cm LVPW Systolic Thickness 1.4 cm LVOT Diameter 2.0 cm LV Ejection Fraction 2D Teich 60.8 % LV Ejection Fraction MOD 4C 54.6 % LV Ejection Fraction MOD 2C 51.1 % LV Ejection Fraction 2C AL 52.5 % LA Diameter 2.7 cm RA Systolic Volume 4C AL 53.8 ml RA Systolic Volume 4C MOD 53.2 ml LA Sys Volume AL 36.3 cm cubed LA Sys Volume Index AL 19.3 cm cubed/m squared Aorta at Sinotubular Diameter 2.3 cm M-MODE LA Ao Ratio MM 1.7 AV Cusp Separation MM 1.1 cm DOPPLER AV Peak Velocity 361.0 cm/s LVOT Peak Velocity 150.0 cm/s AV Area Cont Eq vti 1.3 cm squared AV Area Cont Eq pk 1.3 cm squared MV Peak Velocity 142.0 cm/s MV Area PHT 1.8 cm squared Mitral E to A Ratio 0.9 TR Peak Velocity 98.0 cm/s TR Peak Gradient 3.8 mmHg TV Peak E Velocity 69.0 cm/s PV Peak Velocity 114.0 cm/s FINDINGS Left Ventricle Normal left ventricular size, systolic function and wall thickness, with no regional wall motion abnormalities. Left ventricular ejection fraction is estimated at 55 %. Grade I/IV diastolic dysfunction (abnormal relaxation filling pattern), normal to mildly elevated filling pressures. Right Ventricle Right Atrium Left Atrium Mitral Valve Severely thickened mitral valve. Severe mitral annular calcification. No mitral valve stenosis. Trace mitral valve regurgitation. Aortic Valve Severe aortic valve calcification. Moderate aortic valve stenosis, mean gradient 28 mmHg, JACOBY 1.3 cm2, Mmoderate aortic valve regurgitation. Tricuspid Valve Pulmonic Valve Pericardium Aorta IVC CONCLUSIONS Normal left ventricular size, systolic function and wall thickness, with no regional wall motion abnormalities. Left ventricular ejection fraction is estimated at 55 %. Grade I/IV diastolic dysfunction (abnormal relaxation filling pattern), normal to mildly elevated filling pressures. Severe aortic valve calcification. Moderate aortic valve stenosis, mean gradient 28 mmHg, JACOBY 1.3 cm2, Mmoderate aortic valve regurgitation. Severely thickened mitral valve. Severe mitral annular calcification. No mitral valve stenosis. Trace mitral valve regurgitation. There is no pericardial effusion. Right atrial pressure is around 5 mm of mercury. Jazmine Mccann MD (Electronically Signed) Final Date: 18 February 2025 17:38 S
== END 2025-02-08 10:06 | disposition home or self-care (01) ==
LOC: CDL 10:06
PROVIDERS: PCP Internal Medicine; Visit Provider Internal Medicine Cardiovascular Disease
DX: I35.0 Nonrheumatic aortic (valve) stenosis (principal); R06.02 Shortness of breath; R93.1 Abnormal findings on diagnostic imaging of heart and coronary circulation; I34.81 Nonrheumatic mitral (valve) annulus calcification; I35.8 Other nonrheumatic aortic valve disorders; I35.1 Nonrheumatic aortic (valve) insufficiency
CPT/HCPCS: 93306

== ENCOUNTER 2025-03-07 07:46 | Outpatient (CLI) | payer MEDICARE, SELFPAY ==
--- NOTE | 2025-03-07 07:52 | NM_ITS ---
WS: [id number] EXAMINATION: NM parathyroid [id number] ORDER DATE: 03/07/2025 7:56 AM COMPARISON: None HISTORY: HYPERPARATHYROIDISM TECHNIQUE: Parathyroid scintigraphy with 20.3 mCi of technetium 99m sestamibi administered. AP and oblique views obtained with and without chin and suprasternal notch markers. Initial and 2 hour delayed imaging acquired. FINDINGS: Normal salivary gland uptake. Normal initial thyroid gland activity. Normal thyroid washout. No suspicious retained areas of activity to indicate parathyroid adenoma. NM/NM parathyroid [id number] IMPRESSION: 1. No evidence of parathyroid adenoma
== END 2025-03-07 07:47 | disposition home or self-care (01) ==
PROVIDERS: PCP Internal Medicine; Visit Provider Internal Medicine
DX: E21.3 Hyperparathyroidism, unspecified (principal)
CPT/HCPCS: 78070; A9500

== ENCOUNTER 2025-05-10 13:21 | Outpatient (CLI) | payer MEDICARE, SELFPAY ==
--- NOTE | 2025-05-10 13:26 | XR_ITS ---
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 Mildly exaggerated lower lumbar lordosis No significant vertebral body compression or focal lesion in the lumbar vertebrae. Moderate narrowing of the L5-S1 disc space with moderate endplate sclerosis and osteophytosis. The remainder of the intervertebral disc spaces are intact and relatively well preserved with mild endplate sclerosis and osteophytosis. No spondylolysis. 6 mm of neutral anterolisthesis of L5 on S1. This listhesis does not change significantly during flexion and extension. No other abnormal vertebral body movement with flexion and extension. Moderate to significant degenerative arthropathy in the facet joints L3-S1. XR/XR lumbar spine 6V w f/e [id number] IMPRESSION: Moderate to significant degenerative spondylosis.
== END 2025-05-10 13:22 | disposition home or self-care (01) ==
LOC: RAD 13:23
PROVIDERS: PCP Internal Medicine; Visit Provider Student in an Organized Health Care Education/Training Program
DX: M47.817 Spondylosis without myelopathy or radiculopathy, lumbosacral region (principal); M41.86 Other forms of scoliosis, lumbar region; M25.78 Osteophyte, vertebrae; M48.07 Spinal stenosis, lumbosacral region; M43.17 Spondylolisthesis, lumbosacral region
CPT/HCPCS: 72114